=== PATIENT | male | born 1935 | race Caucasian/White ===

== ENCOUNTER 2017-08-21 05:54 | Day surgery (SDC) | payer MEDICARE ==
[~2017-08-21] VITALS: Ht 170.2 cm; Wt 101.4 kg
[2017-08-21] VITALS (8 sets, daily range): BP systolic 123–147; BP diastolic 62–85; PULSE 46–73; RESP 16–18; TEMP 89.4–98.6; O2SAT 93–98
[~2017-08-21 05:54] MED LIST: COUM3TAB PO; COUM5TAB PO; HYDR-3533 PO; LOVA40TA PO; METO50TA PO; VERA360C PO
[2017-08-21] MEDS ORDERED: IOHEXOL 350 MG/ML 50 ML BTL (for Cath Lab) OTHER ONE (05:55)
[2017-08-21] MEDS ORDERED: IOHEXOL 350 MG/ML 100 ML BTL (for Cath Lab) OTHER ONE (05:55)
[2017-08-21] MEDS: NS 1000P @30 MLS/HR (KVO) IV SCH (06:15)
--- NOTE | 2017-08-21 06:51 | RADRPT ---
EXAM DATE/TIME: 08/21/2017 06:21 [place] COMPARISON: No previous studies available for comparison. INDICATIONS : Evaluate for pneumonia,pneumothorax or communicable disease. Preop chest for pre TAVR today MEDICAL HISTORY : Cardiovascular disease. SURGICAL HISTORY : unknown ENCOUNTER: Initial ACUITY: 1 day PAIN SCORE: 0/10 LOCATION: Bilateral chest FINDINGS: Portable AP view of the chest demonstrates mildly enlarged cardiac silhouette with calcification of t he aorta. No effusion, consolidation, or pneumothorax is identified. The bones and soft tissues demon strate no acute finding. There are degenerative changes of the thoracic spine. CONCLUSION: Cardiac silhouette size is mildly enlarged. Otherwise, no acute finding is identified. Ruslan Smith MD on August 21, 2017 at 6:48 Board Certified Radiologist. This report was verified electronically.
[2017-08-21 07:18] LABS: AUTOMATED NEUTROPHIL # 4.3 TH/MM3 (1.8-7.7); BASOPHIL # 0.1 TH/MM3 (0-0.2); BASOPHIL % 0.8 % (0.0-2.0); EOSINOPHIL # 0.1 TH/MM3 (0-0.4); EOSINOPHIL % 1.6 % (0.0-4.0); HEMATOCRIT 39.8 % (39.0-51.0); HEMOGLOBIN 13.7 GM/DL (13.0-17.0); LYMPH % 28.8 % (9.0-44.0); LYMPHOCYTE # 2.1 TH/MM3 (1.0-4.8); MEAN CELL VOLUME 95.4 FL (80.0-100.0); MEAN CORPUSCULAR HEMOGLOBIN 32.9 PG (27.0-34.0); MEAN CORPUSCULAR HGB CONC 34.4 % (32.0-36.0); MEAN PLATELET VOLUME 9.2 FL (7.0-11.0); MONO % 10.2 % (0.0-8.0); MONOCYTE # 0.8 TH/MM3 (0-0.9); NEUT % 58.6 % (16.0-70.0); PLATELET COUNT 158 TH/MM3 (150-450); RED BLOOD COUNT 4.17 MIL/MM3 (4.50-5.90); RED CELL DISTRIBUTION WIDTH 12.5 % (11.6-17.2); WHITE BLOOD COUNT 7.4 TH/MM3 (4.0-11.0)
[2017-08-21 07:21] LABS: BILIRUBIN, URINE NEG (NEG); BLOOD, URINE NEG (NEG); GLUCOSE,URINE NEG (NEG); KETONE, URINE NEG (NEG); MUCUS URINE FEW /lpf (OCC); NITRITE,URINE NEG (NEG); URINE COLOR YELLOW (YELLW/STRAW); URINE LEUKOCYTE ESTERASE NEG (NEG)
[2017-08-21 07:28] LABS: INTERNATIONAL NORMALIZED RATIO 1.3 RATIO; PROTHROMBIN TIME - PATIENT 13.2 SEC (9.8-11.6)
[2017-08-21 07:37] LABS: ALBUMIN 3.6 GM/DL (3.4-5.0); CALCIUM 9.2 MG/DL (8.5-10.1); CREATININE 1.08 MG/DL (0.60-1.30)
[2017-08-21] MEDS ORDERED: GABA100C4 PO (07:55)
[2017-08-21] MEDS ORDERED: TRAM50TA PO (07:55)
[2017-08-21] MEDS ORDERED: FURO40TA PO (07:55)
[2017-08-21] MEDS ORDERED: zyrtec PO (07:55)
[2017-08-21] MEDS ORDERED: SYSTSOL EACH EYE (07:55)
[2017-08-21] MEDS ORDERED: MIDAZOLAM HCL 2 MG/2 ML VIAL ONE (08:17)
[2017-08-21] MEDS ORDERED: HEPARIN-NS/PF FLUSH BAG 2,000 ML IV FLUSH ONE (08:17)
[2017-08-21] MEDS ORDERED: BIVALIRUDIN 250 MG VIAL ONE (08:59)
[2017-08-21] MEDS ORDERED: CLOPIDOGREL 300 MG TAB ONE (09:38)
[2017-08-21] MEDS ORDERED: ATROPINE SULFATE 1 MG/ML VIAL IV PUSH PRN (10:00)
[2017-08-21] MEDS ORDERED: oxyCODONE/ACETAMINOPHEN 5 MG/325 MG TAB PO PRN (10:00)
[2017-08-21] MEDS ORDERED: ACETAMINOPHEN 325 MG TAB PO PRN (10:00)
[2017-08-21] MEDS ORDERED: MORPHINE SULFATE 4 MG/ML INJ IV PUSH PRN (10:00)
[2017-08-21] MEDS ORDERED: SODIUM CHLOR 0.9% 250 ML INJ 250 ML IV PRN (10:00)
[2017-08-21] MEDS ORDERED: MISC INFORMATION XX ONE (10:00)
[2017-08-21] MEDS ORDERED: oxyCODONE/ACETAMINOPHEN 10 MG/325 MG TAB PO PRN (10:00)
[2017-08-21] MEDS ORDERED: METOCLOPRAMIDE HCL 10 MG/2 ML VIAL IV PUSH PRN (10:00)
[2017-08-21] MEDS ORDERED: traMADol HCL 50 MG TAB PO PRN (10:00)
--- NOTE | 2017-08-21 10:08 | CATHPROC ---
Car[employer] HIS Report Study Information Study Number Admission Scheduled Start Study Start [id number] Aug 21 2017 5:54AM 08/21/2017 Aug 21 2017 8:14AM [place] [facility] Cardiac Catheterization Admit Source Facility Department Other [facility] Physician and Clinical Staff Initial Kentrell Wilson Railway Switchman Mallory Peterson BSN Railway Switchman Zay Marino,SHAUN Other cathlab, cathlab Recorder Jacky Webber RCIS(BS) Scrub Davdi Davey,RT(R) Scrub Jayashree Morgan ,RT(R) Procedures Performed Procedure Location (Site) Vessel Name Coronary Angiograms LCA Left Coronary Coronary Angiograms RCA Right Coronary PTCA DIAG1 Prox Left Coronary Stent LAD Mid Left Coronary Wire insertion Fem Art (right) Femoral Art Equipment Time Strategic Procurement Manager Description Size Mfg Part Number Used/Scraped COPILOT VALVE, BLEEDBACK [id number] 09:00 [employer] Used CONTROL *[id number] ARROW INTERNATIONAL CATHETER, FR.7 BALLOON [id number] 08:18 FR 7 Used INC. WEDGE PRESSURE *[id number] TRANSDUCER, TRUWOMAIRA [id number] 08:18 ELI SOOD * Used W/STOCKCOCK *[id number] 09:29 CARDIVA MEDICAL VASCADE, FR6 CLOSURE SYSTEM FR 6\7 Used *[id number] 09:29 CARDIVA MEDICAL VASCADE, FR6 CLOSURE SYSTEM FR 6\7 Used *[id number] 09:40 CARDIVA MEDICAL VASCADE, FR6 CLOSURE SYSTEM FR 6\7 Used *[id number] *[id number] [phone] *[id number] [phone] *[id number] 08:18 MEDLINE INDUSTRIES PACK, CCL CUSTOM * Used *[id number] 08:18 MEDLINE PACER PEN, SKIN DUAL W/ RULER * Used *[id number] 09:21 MEDTRONIC BALLOON, 2.0 X 10MM EUPHORA 10MM Used *[id number] 08:31 MEDTRONIC JR 4.0 DXTERITY CATHETER FR 5 Used *[id number] 09:13 MEDTRONIC STENT, 2.5 18 INTEGRITY 2.5 18 Used *0925324 [id number] 09:16 AppLovin MEDICAL 30 HOSEA INDEFLATOR Used *2164927 [id number] 08:57 MERIT MEDICAL SHEATH, FR6.5 PRELUDE 11CM FR 6.5 038ACT Used *4768424 [id number] 08:18 [employer]ovin MEDICAL WIRE, 3MMJ .035 180CM 180CM Used *[id number] 08:18 NAMIC MANIFOLD, 4 PORT * Used *[id number] 08:18 NYCOMED OMNIPAQUE, 350 MG, 150ML 150ML [id number] Used [id number] 08:18 SHER MEDICAL BLANKET,WARM AIR CCL * Used *3158612 [id number] 08:18 TERUMO MEDICAL SHEATH, FR5 TERUMO (10CM) FR 5 Used *[id number] [id number] 08:18 TERUMO MEDICAL SHEATH, FR7 TERUMO (10CM) FR 7 Used *8207617 WIRE, RUNTHROUGH NS FLOPPY [id number] 08:58 TERUMO MEDICAL 180CM Used .014 180CM *[id number] WIRE, RUNTHROUGH NS FLOPPY [id number] 09:17 TERUMO MEDICAL 180CM Used .014 180CM *[id number] Equipment Model, Serial, Lot Number and Expiration Data Description Model Number Serial Number Lot Number Expiration Date STENT, 2.5 18 INTEGRITY [id number] 03-02-2019 History: Current Medications Medication Dosage/Unit Route Frequency Last Date/Time Taken Beta Zina Statins (any) Coumadin History: Allergies Allergy Reaction chocolate flavor Sneezing tree nut Sneezing History: Risk Factors Family History of Hypertension Dyslipidemia Previous ND Previous Heart Failure Premature CAD Yes Yes No No No Prior Valve Prior PCI Prior CABG Surgery No No No Cerebrovascular Peripheral Artery Chronic Lung On Dialysis Diabetes Disease Disease Disease No Yes No No No History: Symptoms/Diagnosis Selection Items SOB History: Stress Tests Stress or Imaging Studies Performed No History: Other Disease Selection Items HTN History: Other Current Smoker Method Quit Packs a Day Years Used Pack Years No Cigarettes 30 Years Ago 1 37 37 Labs Hgb (g/dl) Hct (%) WBC (l/cumm) Platelets (thousands) 11.60-17.00 35.00-51.00 4.00-11.00 150.00-450.00 13.7 39.8 7.4 158 Glucose (mg/dl) BUN (mg/dl) Creatinine (mg/dl) BUN:Creatinine (1:x) 74.00-106.00 7.00-18.00 0.50-1.30 10.00-20.00 105 23 1.0 23 Na (meq/l) K (meq/l) 136.00-145.00 3.50-5.10 140 3.7 INR (PTT:PT) 0.90-1.10 1.3 CPK-MB (ng/ML) 0.50-3.60 Not Drawn Medication Medication Total Dose (Bolus/Oral) Medication Total Dosage/Unit 1% XYLOCAINE 20 mL ANGIOMAX BOLUS 15 mL FENTANYL 100 mcg PLAVIX 600 mg VERSED 2 mg Medications (Bolus/Oral) Medication Time Given Dosage/Unit Administered By Reason VERSED 08/21/2017 8:43:05 AM 1 mg Zay Marino 1 mg VERSED given in lab by Zay Marino RN in Left Antecubital via Peripheral IV. Ordered by Kentrell Vallejo. FENTANYL 08/21/2017 8:43:18 AM 50 mcg Zay Marino 50 mcg FENTANYL given in lab by Zay Marino RN in Left Antecubital via Peripheral IV. Ordered by Kentrell Oh. 1% XYLOCAINE 08/21/2017 8:44:01 AM 20 mL Kentrell Oh 20 mL 1% XYLOCAINE given in lab by Kentrell Oh in Right Groin via Subcutaneous. Ordered by Kentrell Oh. VERSED 08/21/2017 9:02:02 AM 1 mg Zay Marino 1 mg VERSED given in lab by Zay Marino RN in Left Antecubital via Peripheral IV. Ordered by Kentrell Vallejo. FENTANYL 08/21/2017 9:02:08 AM 25 mcg Zay Marino 25 mcg FENTANYL given in lab by Zay Marino RN in Left Antecubital via Peripheral IV. Ordered by Kentrell Oh. ANGIOMAX BOLUS 08/21/2017 9:02:35 AM 15 mL Zay Marino 15 mL ANGIOMAX BOLUS given in lab by Zay Marino RN via Peripheral IV. Ordered by Kentrell Oh. PLAVIX 08/21/2017 9:38:33 AM 600 mg Zay Marino 600 mg PLAVIX given in lab by Zay Marino, SHAUN via Oral. Ordered by Kentrell Oh. FENTANYL 08/21/2017 9:40:44 AM 25 mcg Zay Marino 25 mcg FENTANYL given in lab by Zay Marino, SHAUN in Left Antecubital via Peripheral IV. Ordered by Kentrell Oh. Medication (Drip) Medication Time Given Dosage/Unit Concentration/Unit Diluent (ml) Solutio n ANGIOMAX DRIP 08/21/2017 9:04:42 AM 1.75 mg/kg/hr 250 mg 50 NaCl .9 1.75 mg/kg/hr ANGIOMAX DRIP given in lab by Zay Marino RN in Left Antecubital via Peripheral IV. Pump/Drip Flow = 35.46 ml/hr using NaCl .9 with a concentration of 250 mg in 50 ml. Ordered by Kentrell Oh. IV Solutions 08/21/2017 8:14:13 AM 0 mL (IV) 500 NaCl .9 Patient arrived on IV Solutions given by cathlab, cathlab in Left Antecubital via Peripheral IV. Pump /Drip Flow = 20 ml/hr using NaCl .9. Ordered by Kentrell Oh. Initial Case Assessment Cardiovascular HR Rhythm NIBP Chest Pain 69 nsr 132/78 0 Edema Present Skin color Skin None Normal Warm Dry Circulatory - Right Pulses Dorsalis Pedis Femoral 3 3 Scale (0,1,2,3,4,d) Circulatory - Left Pulses Dorsalis Pedis Femoral 3 3 Scale (0,1,2,3,4,d) Neurological State Oriented to time-place- Alert Moves all extremities person Respiration - General Respiration Rate SpO2 (%) (B/min) 15 98 Chronological Log Time Study Chronological Log 8:10:03 Patient arrived via Bed. 8:14:04 Patient Name, D.O.B, / Armband Verified By R.N. 8:14:04 Consent signed by the physician and the patient and verified by the [facility] staff. 8:14:05 Pre-op and post- op instructions given; patient acknowledges understanding of instructions . 8:14:05 Verbal Stimulation=2 Physical Stimulation=2 Airway=2 Respiration=2 TOTAL=8. (0=absent, 1=l imited, 2=present) 8:14:06 Presedation assessment performed by [facility] RN. 8:14:09 Immediate Presedation assesment performed by physician. 8:14:09 Patient has been NPO for More than 6Hrs. 8:14:10 Skin Breakdown- none per patient 8:14:11 Patient Warmer Placed on the Table. 8:14:11 Maria Esther Prominences Protected 8:14:13 A # 20 IV was noted in the Antecubital (left). Grade = 0 Patient arrived on IV Solutions given by cathlab, cathlab in Left Antecubital via Peripheral IV. Pump/Drip Flow = 20 8:14:13 ml/hr using NaCl .9. Ordered by Kentrell Oh. 8:14:14 History and physical on the chart or being dictated. Vitals capture started with the following parameters, Patient=Adult, Interval=5 min, Initial Pre gfvrw=463 mmHg, 8:16:26 Deflation Rate=5 mmHg, Cuff placed on Left Arm 8:17:07 HR=66 bpm, GUJD=486/78 mmhg, SpO2=97.0 %, Resp=16 B/min, Pain=0, Gume=10, Reyes=2 Assessment: Initial Case, HR=69 BPM, Rhythm=nsr, ERCC=097/78 mmhg, Chest Pain=0, Edema=None, Col or=Normal, Skin = Warm, Dry Right Pulses: Louie Ped=3, Femoral=3 8:19:19 Left Pulses: Louie Ped=3, Femoral=3 Neurological: State=Alert, Ox3, DOTSON Respiration: Resp=15 B/min, SpO2=98 % 8:22:06 HR=62 bpm, LAJE=994/76 mmhg, SpO2=98.0 %, Resp=14 B/min, Pain=0, Gume=10, Reyes=2 8:25:13 Bilateral groins prepped with 2% chlorhexidine, and draped after a 3 minute waiting time. 8:27:03 Reference ECG taken 8:27:05 HR=57 bpm, FLSQ=475/69 mmhg, SpO2=98.0 %, Resp=17 B/min, Pain=0, Gume=10, Reyes=2 8:31:41 Pressure channel 1 zeroed. 8:32:08 HR=56 bpm, RGIO=074/64 mmhg, SpO2=99.0 %, Resp=17 B/min, Pain=0, Gume=10, Reyes=2 8:32:26 MD paged 8:34:55 MD responded 8:37:07 HR=59 bpm, LTYY=999/69 mmhg, SpO2=99.0 %, Resp=10 B/min, Pain=0, Gume=10, Reyes=2 8:39:10 MD arrived. 8:39:15 The Physician was on time. 8:42:08 HR=51 bpm, DFJE=326/62 mmhg, SpO2=98.0 %, Resp=10 B/min, Pain=0, Gume=10, Reyes=2 Time Out. Correct patient, correct procedure, correct physician, power injector loaded, or not l oaded with contrast with 8:42:53 surgical team present. Time Out Concurred by MD and individual staff in procedure. Time Out #2 - Consents verified, patient in correct position, all results are labled and display ed, safety precautions 8:42:54 taken. Time Out concurred by MD, individual staff and JIG BOX OPERATOR in procedure. 8:42:57 Case Start 8:43:05 1 mg VERSED given in lab by Zay Marino, SHAUN in Left Antecubital via Peripheral IV. Ordere d by Kentrell Oh. 8:43:18 50 mcg FENTANYL given in lab by Zay Marino, SHAUN in Left Antecubital via Peripheral IV. Or dered by Kentrell Oh. 8:44:01 20 mL 1% XYLOCAINE given in lab by Kentrell Oh in Right Groin via Subcutaneous. Ordered b y Kentrell Oh. 8:46:18 Access site was Right Femoral Artery. 8:46:36 A SHEATH, FR5 TERUMO (10CM) FR 5 was advanced into the Fem Art (right) using the Percutaneou s technique. 8:47:03 HR=49 bpm, SJEQ=712/66 mmhg, SpO2=94.0 %, Resp=17 B/min, Pain=0, Gume=10, Reyes=2 8:47:32 Access site was Right Femoral Vein. 8:47:39 A SHEATH, FR7 TERUMO (10CM) FR 7 was advanced into the Fem Vein (right) using the Percutaneo us technique. 8:47:48 A CATHETER, FR.7 BALLOON WEDGE PRESSURE FR 7 was inserted via Fem Vein (right) Recorded Pressure: RA, HR=53, Condition=Condition 1 8:48:18 (Right Atrium) RA 13 Recorded Pressure: RV, HR=61, Condition=Condition 1 8:48:39 (Right Ventricle) RV 37// Recorded Pressure: MPA, HR=68, Condition=Condition 1 8:49:40 (Main Pulmonary Artery) MPA Recorded Pressure: PCW, HR=54, Condition=Condition 1 8:50:18 (Pulmonary Capillary Wedge) PCW 8:51:05 Saturation: Site=Ao (Aorta) , O2=98.5 %, Hgb=13.7 gm/dl, Condition=Condition 1. Used in calc ulation. 8:51:42 Saturation: Site=PA (Pulmonary Artery) , O2=70.7 %, Hgb=13.7 gm/dl, Condition=Condition 1. U sed in calculation. 8:52:08 HR=65 bpm, YJGX=592/51 mmhg, SpO2=93.0 %, Resp=21 B/min, Pain=0, Gume=10, Reyes=2 8:52:42 [place] Raymundo Catheter Removed A JL 4.0 INFINITI CATHETER FR 5 was advanced over a wire. OMNIPAQUE, 350 MG, 150ML 150ML was use d for 8:54:27 injections. Recorded Pressure: Ao, HR=56, Condition=Condition 1 8:55:12 (Aorta) Ao 105/53/76 8:55:42 The LCA was injected and visualized at various angles. OMNIPAQUE, 350 MG, 150ML 150ML used. 8:57:07 HR=49 bpm, YNYC=446/65 mmhg, SpO2=95.0 %, Resp=19 B/min, Pain=0, Gume=10, Reyes=2 After removing the current catheter a JR 4.0 DXTERITY CATHETER FR 5 was advanced over a WIRE, 3M MJ .035 180CM 8:57:25 180CM. 8:58:57 The RCA was injected and visualized at various angles. OMNIPAQUE, 350 MG, 150ML 150ML used. 9:00:18 Catheter was removed A SHEATH, FR6.5 PRELUDE 11CM FR 6.5 was exchanged in the Fem Art (right). This was necessary in order to 9:00:29 accomodate a larger catheter. 9:02:02 1 mg VERSED given in lab by Zay Marino, SHAUN in Left Antecubital via Peripheral IV. Ordere d by Kentrell Oh. 9:02:06 HR=59 bpm, SNAW=666/68 mmhg, SpO2=96.0 %, Resp=14 B/min, Pain=0, Gume=10, Reyes=2 9:02:08 25 mcg FENTANYL given in lab by Zay Marino, SHAUN in Left Antecubital via Peripheral IV. Or dered by Kentrell Oh. 9:02:35 15 mL ANGIOMAX BOLUS given in lab by Zay Marino, SHAUN via Peripheral IV. Ordered by Kentrell Oh. A XBLAD 3.5 GUIDE CATHETER FR 6 was advanced over a wire. OMNIPAQUE, 350 MG, 150ML 150ML was use d for 9:03:17 injections. 1.75 mg/kg/hr ANGIOMAX DRIP given in lab by Zay Marino, SHAUN in Left Antecubital via Periphera l IV. Pump/Drip Flow 9:04:42 = 35.46 ml/hr using NaCl .9 with a concentration of 250 mg in 50 ml. Ordered by Kentrell Oh. After removing the current catheter a XBLAD 4.0 GUIDE CATHETER FR 6 was advanced over a WIRE, 3M MJ .035 180CM 9:06:47 180CM. 9:07:13 HR=50 bpm, NIBP=92/51 mmhg, SpO2=96.0 %, Resp=10 B/min, Pain=0, Gume=10, Reyes=2 9:09:49 A WIRE, RUNTHROUGH NS FLOPPY .014 180CM 180CM was inserted via Fem Art (right). 9:11:22 Interventional wire has crossed the lesion 9:12:04 HR=51 bpm, NIBP=95/62 mmhg, SpO2=96 %, Resp=15 B/min, Pain=0, Gume=10, Reyes=2 An STENT, 2.5 18 INTEGRITY 2.5 18 Bare Metal Stent was inserted through a XBLAD 4.0 GUIDE CATHET ER FR 6 over 9:14:53 a WIRE, RUNTHROUGH NS FLOPPY .014 180CM 180CM. A STENT, 2.5 18 INTEGRITY 2.5 18 was deployed using a 30 HOSEA INDEFLATOR at 14 atmospheres for 10 seconds in 9:15:31 the LAD Mid. 9:16:21 Delivery device removed 9:17:03 HR=50 bpm, GEER=828/62 mmhg, SpO2=97.0 %, Resp=17 B/min, Pain=0, Gume=10, Reyes=2 9:17:40 A WIRE, RUNTHROUGH NS FLOPPY .014 180CM 180CM was inserted via Fem Art (right). 9:19:35 Interventional wire has crossed the lesion A BALLOON, 2.0 X 10MM EUPHORA 10MM was inserted over WIRE, RUNTHROUGH NS FLOPPY .014 180CM 180CM via 9:20:51 the Fem Art (right). 9:22:08 HR=48 bpm, NIBP=99/55 mmhg, SpO2=96.0 %, Resp=15 B/min, Pain=0, Gume=10, Reyes=2 A BALLOON, 2.0 X 10MM EUPHORA 10MM over a WIRE, RUNTHROUGH NS FLOPPY .014 180CM 180CM in the KEELEY G1 9:22:35 Prox was inflated using a 30 HOSEA INDEFLATOR at 6 hosea for 30 sec. 9:23:21 Balloon Removed. 9:25:00 Both wires removed 9:25:32 Catheter was removed 9:27:07 HR=47 bpm, NIBP=95/55 mmhg, SpO2=95.0 %, Resp=19 B/min, Pain=0, Gume=10, Ryees=2 9:29:43 An injection in the Fem Art (right) was made through the SHEATH, FR6.5 PRELUDE 11CM FR 6.5. 9:32:06 HR=44 bpm, NIBP=98/54 mmhg, SpO2=98.0 %, Resp=21 B/min, Pain=0, Gume=10, Reyes=2 9:33:42 VASCADE, FR6 CLOSURE SYSTEM FR 6\7 placement in the Fem Art (right) 9:37:05 HR=50 bpm, CWMC=417/65 mmhg, SpO2=98.0 %, Resp=14 B/min, Pain=0, Gume=10, Reyes=2 9:38:33 600 mg PLAVIX given in lab by Zay Marino, RN via Oral. Ordered by Kentrell Oh. 9:40:10 VASCADE, FR6 CLOSURE SYSTEM FR 6\7 placement in the Fem Vein (right) 9:40:23 Case End 9:40:44 25 mcg FENTANYL given in lab by Zay Marino, RN in Left Antecubital via Peripheral IV. Ordered by Kentrell Oh. 9:42:06 HR=49 bpm, FKGM=805/64 mmhg, SpO2=98.0 %, Resp=17 B/min, Pain=0, Gume=10, Reyes=2 9:46:50 Sterile dressing applied to site 9:46:51 No case complications noted. 9:46:53 Cine recording checked. 9:46:55 Bedside Report will be given. 9:46:56 Implantable Device card placed in patient's chart. 9:46:58 DOCU called. Spoke to Bel 9:47:07 HR=49 bpm, VDUP=603/63 mmhg, SpO2=97.0 %, Resp=17 B/min, Pain=0, Gume=10, Reyes=2 9:48:10 Contrast Scanned 9:48:13 A Left and Right Heart Cath was performed. 9:52:06 HR=46 bpm, NIBP=82/57 mmhg, SpO2=96 %, Resp=17 B/min 9:55:16 Patient moved to [facility] End Study - Contrast Media Used In Study Contrast Total Opened (mL) Total Used (mL) Total Wasted (mL) Omnipaque 110 110 0 End Study - Maximum Contrast Load Max Contrast Load (mL) 506.6 End Study - Radiation Exposure Fluoro Time (minutes) 9.7 End Study - Patient Disposition Complications Transferred To Interventional Outcome No Telemetry Bed successful
[2017-08-21] MEDS: SODIUM CHLORID 0.9% 500 ML INJ 500 ML IV SCH ×2 (10:30→10:56)
--- NOTE | 2017-08-21 10:33 | MA ---
cc: KENTRELL FAJARDO DATE 08/21/2017 INDICATION Severe aortic stenosis. PROCEDURE PERFORMED 1. Fluoroscopy with interpretation. 2. Right heart catheterization. 3. Coronary angiography. 4. Percutaneous intervention bare metal stent to the mid-left anterior descending coronary artery and balloon angioplasty of the first diagonal branch. METHOD The risks, benefits and alternatives were discussed with the patient. The patient understood and consented to the procedure. PROCEDURE The patient was brought into the catheterization lab and placed on the catheterization table. The right groin was prepped and draped in the usual sterile fashion. The right groin was anesthetized with 2% lidocaine. The right common femoral artery was cannulated and a 5-Iranian, 11-cm sheath was placed without difficulty. The right femoral vein was accessed and a 7-Iranian sheath was placed without difficulty. RIGHT HEART CATHETERIZATION A 7-Iranian Silt-Raymundo pulmonary arterial catheter was advanced through the right femoral via an 8 sheath to the level of the right atrium under fluoroscopic guidance. Hemodynamics were as follows - 1. Right atrial pressure measured 13 mmHg. 2. Right ventricular pressure measured 37.5 mmHg. 3. Pulmonary arterial pressure measured 40/17 mmHg. 4. Pulmonary capillary wedge pressures 18 mmHg. 5. Cardiac output is 5.1 liters/minute. 6. Cardiac index 2.4 liters/minute/meter2. CORONARY ANGIOGRAPHY 1. Left main coronary artery is angiographically normal. 2. Left anterior descending coronary artery proximally has some mild luminal irregularities. There is 75% stenosis just beyond the bifurcation with moderate-sized first diagonal branch. The remainder of the left anterior descending coronary artery has mild luminal irregularities. 3. The Left circumflex gives rise to an obtuse marginal branch. It has minor luminal irregularities. 4. The right coronary artery is a dominant vessel giving rise to a posterior descending branch. The right coronary artery has mild luminal irregularities. PERCUTANEOUS INTERVENTION The left main coronary was selectively engaged with a 6-Iranian XB-LAD 4.0 guide catheter. A 0.014-inch, 180-cm Mass Relevance Run-Through wire was navigated down to the distal left anterior descending coronary artery. A 2.5 x 18-mm RX bare metal stent was deployed in the mid-segment of the left anterior descending coronary artery. There was some plaque shifting into the ostia of the diagonal branch. A second wire was then carefully navigated down to the distal diagonal branch. A 2.0 x 10-mm RX balloon was then gently deployed at the proximal segment of the diagonal branch. Repeat angiography showed no residual stenosis, ALEC-3 flow. Both wires were removed. Both sheaths were closed with closure device, Vascade with good hemostasis. CONCLUSIONS 1. Severe mid-left anterior descending coronary stenosis. 2. Severe aortic stenosis. 3. Normal left and right-sided filling pressures, cardiac output and index, and mild pulmonary hypertension. 4. Successful percutaneous intervention with bare-metal stent to the mid-left anterior descending coronary artery. PLAN 1. Monitor the patient closely for any post-procedural complications. 2. We will have further evaluation for transcatheter aortic valve replacement. 3. We will initiate statin therapy in addition to Plavix. 4. We will hold diltiazem given the bradycardia. Kentrell Fajardo MD SM/SSB /9:56 AM /10:12 AM
--- NOTE | 2017-08-21 10:52 | PD.FRAIL ---
Date: Aug 21, 2017 Height: 170.18 cm Weight: 101.3 kg BMI: 35.0 Assessment Performed: Outpatient Albumin 08/21/17 06:47: Blood Urea Nitrogen 23, Creatinine 1.08, Random Glucose 105, Albumin 3.6, Calcium Level 9.2, Sodium Level 140, Potassium Level 3.7, Chloride Level 105, Carbon Dioxide Level 28.0 Pass/Fail: Pass Shahid Activities Daily Living Shahid ADL Score: Bathing(bathes self/help in single area): Snowflake (1), Dressing(gets/puts clothes on self): Snowflake (1), Toileting(goes without help): Snowflake ( 1), [facility] Snowflake (1), Continence( complete self-control): Snowflake (1), Feeding(self, prep by another allowed) : Snowflake (1), Total: 6 Legal Arbitrator Strength Grasp 1: 28 Grasp 2: 22 Grasp 3: 26 Average: 25.3 Pass/Fail: Fail 15-Foot Walk 15-Foot Walk (seconds): 8.5 Pass/Fail: Fail Total Frailty Total Frailty (out of 4): 2 Frailty Index Score Reference Legal Arbitrator Strength: BMI: <=24 Cutoff for nurses' registry director strength(Kg): <=29 BMI: 24.1-28 Cutoff for nurses' registry director strength(Kg): <=30 BMI: >28 Cutoff for nurses' registry director strength(Kg): <=32 15-Foot Walk: Height: <=173 cm 15-Foot Walk Cutoff Time: >=7 seconds Height: >173 cm 15-Foot Walk Cutoff Time: >=6 seconds Lise Orozco RN Aug 21, 2017 10:52
--- NOTE | 2017-08-21 13:31 | PD.CAR.PN ---
CVT Progress Note Subjective/Hospital Course: Pt examined and chart reviewed. Full consult dictated: Risk Model and Variables - STS Adult Cardiac Surgery Database Version 2.81 RISK SCORES About the STS Risk Calculator Procedure: AV Replacement Risk of Mortality: 3.154% Morbidity or Mortality: 19.915% Long Length of Stay: 9.382% Short Length of Stay: 28.759% Permanent Stroke: 1.419% Prolonged Ventilation: 11.919% DSW Infection: 0.357% Renal Failure: 6.697% Reoperation: 8.192% Objective: Vital Signs Date Time Temp Pulse Resp B/P (MAP) Pulse Ox O2 Delivery O2 Flow Rate FiO2 08/21/17 10:31 94 Room Air 08/21/17 07:28 98.3 72 16 147/85 (105) 98 Labs: Laboratory Tests Test 08/21/17 06:22 08/21/17 06:41 08/21/17 06:47 Urine Color YELLOW (YELLW/STRAW) Urine Turbidity CLEAR (CLEAR) Urine pH 6.0 (5.0-8.5) Urine Specific [place] 1.018 (1.002-1.035) Urine Protein NEG mg/dL (NEG-TRACE) Urine Glucose (UA) NEG mg/dL (NEG) Urine Ketones NEG mg/dL (NEG) Urine Occult Blood NEG (NEG) Urine Nitrite NEG (NEG) Urine Bilirubin NEG (NEG) Urine Urobilinogen 2.0 MG/DL (LESS THAN Urine Leukocyte Esterase NEG (NEG) Urine RBC 2 /hpf (0-3) Urine WBC 2 /hpf (0-5) Urine Mucus FEW /lpf (OCC) Microscopic Urinalysis Comment CULT NOT INDICATED Nasal Screen MRSA (PCR) MRSA NOT DETECTED (NOT White Blood Count 7.4 TH/MM3 (4.0-11.0) Red Blood Count 4.17 MIL/MM3 (4.50-5.90) Hemoglobin 13.7 GM/DL (13.0-17.0) Hematocrit 39.8 % (39.0-51.0) Mean Corpuscular Volume 95.4 FL (80.0-100.0) Mean Corpuscular Hemoglobin 32.9 PG (27.0-34.0) Mean Corpuscular Hemoglobin Concent 34.4 % (32.0-36.0) Red Cell Distribution Width 12.5 % (11.6-17.2) Platelet Count 158 TH/MM3 (150-450) Mean Platelet Volume 9.2 FL (7.0-11.0) Neutrophils (%) (Auto) 58.6 % (16.0-70.0) Lymphocytes (%) (Auto) 28.8 % (9.0-44.0) Monocytes (%) (Auto) 10.2 % (0.0-8.0) Eosinophils (%) (Auto) 1.6 % (0.0-4.0) Basophils (%) (Auto) 0.8 % (0.0-2.0) Neutrophils # (Auto) 4.3 TH/MM3 (1.8-7.7) Lymphocytes # (Auto) 2.1 TH/MM3 (1.0-4.8) Monocytes # (Auto) 0.8 TH/MM3 (0-0.9) Eosinophils # (Auto) 0.1 TH/MM3 (0-0.4) Basophils # (Auto) 0.1 TH/MM3 (0-0.2) CBC Comment DIFF FINAL Differential Comment Prothrombin Time 13.2 SEC (9.8-11.6) Prothromb Time International Ratio 1.3 RATIO Activated Partial Thromboplast Time 27.7 SEC (24.3-30.1) Blood Urea Nitrogen 23 MG/DL (7-18) Creatinine 1.08 MG/DL (0.60-1.30) Random Glucose 105 MG/DL (74-106) Albumin 3.6 GM/DL (3.4-5.0) Calcium Level 9.2 MG/DL (8.5-10.1) Sodium Level 140 MEQ/L (136-145) Potassium Level 3.7 MEQ/L (3.5-5.1) Chloride Level 105 MEQ/L (98-107) Carbon Dioxide Level 28.0 MEQ/L (21.0-32.0) Anion Gap 7 MEQ/L (5-15) Estimat Glomerular Filtration Rate 66 ML/MIN (>89) Result Diagram: 08/21/17 0647 08/21/17 0647 Kavitha Emery MD Aug 21, 2017 13:31
--- NOTE | 2017-08-21 14:03 | MB ---
cc: KENTRELL OH ROHIT K. M.D. DATE OF CONSULTATION 08/21/[address] Kentrell Oh. REASON FOR CONSULTATION Evaluation for aortic valve replacement. HISTORY OF PRESENT ILLNESS Mr. Couch is a very pleasant 81-year-old gentleman with a known history of aortic stenosis, who presents with progressively worsening symptoms of shortness of breath and fatigue with minimal exertion. The patient has been evaluated with an echocardiogram which has revealed relative preserved ventricular function with ejection fraction of 55% and associated severe aortic stenosis with a calculated valve area of 0.6 cm square, mean gradient of 43.6, peak rate of 85. I am now being consulted for a further opinion regarding surgical therapy versus TAVR repair. He did undergo coronary angiography today which revealed single-vessel coronary artery disease involving the LAD for which he underwent PCI with a bare metal stent. At this present time he is hemodynamically stable with no evidence of decompensation. PAST MEDICAL HISTORY 1. Atrial fibrillation. 2. Aortic stenosis as described above. 3. Hypertension. 4. Hyperlipidemia. 5. Chronic kidney disease. 6. Diet-controlled diabetes mellitus. 7. Degenerative joint disease. 8. Cervical spine stenosis with spondylolysis. 9. Neuropathy. 10.Osteoarthritis. 11.Pulmonary hypertension. 12.TIA. PAST SURGICAL HISTORY 1. Left cataract. 2. Colonoscopy. 3. Cervical spine epidural injection and nerve blocks. 4. Prostatectomy. ALLERGIES The patient reports allergies to: 1. CHOCOLATE FLAVOR. 2. TREE NUTS. MEDICATIONS Home medications include: 1. Warfarin. 2. Lovastatin. 3. Metoprolol. 4. Tramadol. 5. Gabapentin. 6. Furosemide. 7. Polyethylene glycol eye drops. 8. Zyrtec. SOCIAL HISTORY He denies any history of extensive alcohol use or illicit drug use. He is a former smoker, however, does not presently smoke. FAMILY HISTORY Noncontributory. REVIEW OF SYSTEMS As above. All other parameters are negative. PHYSICAL EXAMINATION VITAL SIGNS: On physical examination today he is 170 cm tall, weighs 101 kg. Blood pressure is 147/85 with a heart rate of 72 72 which is irregular, respiratory rate 16. He is afebrile. HEENT: Normocephalic, atraumatic. Pupils are round and reactive. Extraocular muscles intact. NECK: No cervical lymphadenopathy, carotid bruits or JVD. CARDIOVASCULAR: Irregularly irregular with normal S1, S2, without gallops or rubs. There is a 4/6 systolic ejection murmur best heard at the right parasternal border. LUNGS: Basilar crackles, otherwise clear to auscultation bilaterally with good exchange. ABDOMEN: Soft, nontender, nondistended. Normoactive bowel sounds. No hepatosplenomegaly. EXTREMITIES: Bilateral lower extremity pulses are intact without cyanosis, clubbing or edema. No venous varicosities. NEUROLOGIC: Neurologically intact with no focal deficits. IMPRESSION 1. Severe symptomatic aortic stenosis. 2. Congestive heart failure. 3. Hypertension. 4. Hyperlipidemia. 5. Atrial fibrillation. 6. Chronic kidney disease. 7. Cervical spine stenosis. 8. Degenerative joint disease. 9. Neuropathy. 10.Pulmonary hypertension. 11.TIA. PLAN The clinical, echo and angiographic findings were discussed in detail with Mr. Couch. Therapeutic options available including surgical aortic valve replacement versus transcatheter aortic valve replacement (TAVR) therapy was detailed. Given his significant medical co-morbidities, advanced age, as well as his obesity I think he will best be served with the TAVR option. In that regard he will need a CTA of the aorta with runoff as well as PFTs to complete the work-up. He will also need a second opinion with Dr. Weber to concur with the proposed plan. Thank you for allowing me to participate in the care of this patient. Kavitha AMADO /1:34 PM /1:43 PM GISELE
[2017-08-21] MEDS ORDERED: ONDANSETRON HCL 4 MG/2 ML VIAL IV PUSH PRN (15:00)
[2017-08-21] MEDS ORDERED: EPINEPHrine HCL (1:10,000) 1 MG/10 ML SYRINGE ONE (20:38)
[2017-08-21] MEDS ORDERED: GABAPENTIN 100 MG CAP PO SCH (21:00)
[2017-08-21] MEDS ORDERED: ATORVASTATIN 10 MG TAB PO SCH (21:00)
[2017-08-21] MEDS ORDERED: METOPROLOL TARTRATE 50 MG TAB PO SCH (21:00)
[2017-08-21] MEDS ORDERED: IOHEXOL 350 MG/ML 10 ML VIAL (for RAD DIAG) IVCONTRAST ONE (21:26)
--- NOTE | 2017-08-21 21:51 | EKG ---
Date Performed: 08/21/2017 Time Performed: 11:53:32 PTAGE: 81 years EKG: Probable junctional rhythm. Inferior and anterior T wave changes are nonspecific Abnormal E CG PREVIOUS TRACING : 05/13/2007 05.40 DOCTOR: Jeovany Ohara Interpretating Date/Time 08/21/2017 21:49:57
--- NOTE | 2017-08-21 22:36 | RADRPT ---
EXAM DATE/TIME: 08/21/2017 21:16 [facility] COMPARISON: No previous studies available for comparison. INDICATIONS : Preoperative TAVR. IV CONTRAST: 100 cc Omnipaque 350 (iohexol) IV RADIATION DOSE: 45.16 CTDIvol (mGy) MEDICAL HISTORY : Cardiovascular disease. SURGICAL HISTORY : None. ENCOUNTER: Initial ACUITY: 1 day PAIN SCALE: 0/10 LOCATION: chest TECHNIQUE: Volumetric scanning was performed using a multi-row detector CT scanner. The data was post processed with a variety of visualization algorithms including full volume maximum intensity projection, multi -planar sliding thin slab reformation, curved planar reformation, and surface rendering techniques. Using automated exposure control and adjustment of the mA and/or kV according to patient size, radiat ion dose was kept as low as reasonably achievable to obtain optimal diagnostic quality images. DIC OM format image data is available electronically for review and comparison. FINDINGS: CARDIAC: The coronary system is right dominant. There are calcifications in all 3 of the coronary vessels. Th ere is no pericardial effusion AORTIC ROOT/VALVE: Aortic cusps are evident with calcifications. The aortic root measures 4.0 x 3.6 cm.. Mid thoracic aorta measures 2.9 cm with calcifications along the wall of the aorta. THORACIC AORTA: Origin of the great vessels is normal. No evidence of aneurysm, mural thrombus, dissection, or steno sis. There are calcifications along the wall of the arch of the aorta. ABDOMINAL AORTA: No evidence of aneurysm, mural thrombus, dissection or stenosis. There is atherosclerotic plaquing th roughout the wall of the abdominal aorta. CELIAC ARTERY: Celiac artery is widely patent. SMA: This may is patent with some calcified plaques at the origin. RIGHT RENAL ARTERY: Right renal artery is patent. LEFT RENAL ARTERY: Left renal artery is patent. RIGHT COMMON ILIAC: No evidence of aneurysm, mural thrombus, dissection or stenosis. There is atherosclerotic calcified p laques along the wall of the vessel. The common femoral measures 1.3 cm. LEFT COMMON ILIAC: No evidence of aneurysm, mural thrombus, dissection or stenosis. There are calcified plaques along th e wall of the common iliac artery The common femoral measures 1.4 cm. THORAX: There is some interstitial changes in both lung adame. No acute pulmonary infiltrates. No evidence o f mediastinal adenopathy. ABDOMEN: Multiple hepatic cysts are seen throughout the liver. The largest cyst measures approximately 3.7 cm and the left lobe. No dilated biliary ducts. 1.7 cm right renal cyst. 1.5 cm left renal cyst. PELVIS: There is some edema in the right groin area most likely from recent cath. CONCLUSION: 1. There are atherosclerotic changes seen throughout the aorta without significant stenosis.. 2. The aortic root measures approximate 4.0 x 3.6 cm. 3. Nonspecific edema is noted in the right groin area most likely from a recent cath. Prem Dominguez MD on August 21, 2017 at 22:19 Board Certified Radiologist. This report was verified electronically.
[2017-08-21] MEDS ORDERED: PRAVASTATIN SOD 40 MG TAB PO ONE (22:45)
[2017-08-22] VITALS (10 sets, daily range): BP systolic 125–132; BP diastolic 76–85; PULSE 77–98; RESP 16–17; TEMP 98.3; O2SAT 92–94
[2017-08-22 04:21] LABS: AUTOMATED NEUTROPHIL # 5.8 TH/MM3 (1.8-7.7); BASOPHIL # 0.1 TH/MM3 (0-0.2); EOSINOPHIL # 0.1 TH/MM3 (0-0.4); EOSINOPHIL % 1.5 % (0.0-4.0); HEMATOCRIT 36.1 % (39.0-51.0); HEMOGLOBIN 12.3 GM/DL (13.0-17.0); LYMPH % 18.4 % (9.0-44.0); LYMPHOCYTE # 1.5 TH/MM3 (1.0-4.8); MEAN CORPUSCULAR HEMOGLOBIN 32.3 PG (27.0-34.0); MEAN PLATELET VOLUME 9.2 FL (7.0-11.0); MONO % 10.3 % (0.0-8.0); MONOCYTE # 0.9 TH/MM3 (0-0.9); NEUT % 68.8 % (16.0-70.0); PLATELET COUNT 147 TH/MM3 (150-450); RED CELL DISTRIBUTION WIDTH 12.6 % (11.6-17.2); WHITE BLOOD COUNT 8.4 TH/MM3 (4.0-11.0)
[2017-08-22 04:47] LABS: BICARBONATE 28.2 MEQ/L (21.0-32.0); CALCIUM 9.1 MG/DL (8.5-10.1); CREATININE 0.97 MG/DL (0.60-1.30)
[2017-08-22 04:51] LABS: CHOLESTEROL/ HDL RATIO 2.82 RATIO; HDL CHOLESTEROL 42.8 MG/DL (40.0-60.0)
[2017-08-22] MEDS: NS 1000P @30 MLS/HR (KVO) IV SCH (06:15)
[2017-08-22] MEDS ORDERED: PRAVASTATIN SOD 40 MG TAB PO SCH ×2 (09:00→21:00)
[2017-08-22] MEDS ORDERED: CLOPIDOGREL 75 MG TAB PO SCH (09:00)
[2017-08-22] MEDS ORDERED: ASPIRIN 81 MG CHEW TAB PO SCH (09:00)
[2017-08-22] MEDS ORDERED: CETIRIZINE HCL 10 MG TAB PO SCH (09:00)
[2017-08-22] MEDS ORDERED: FUROSEMIDE 40 MG TAB PO SCH (09:00)
--- NOTE | 2017-08-22 09:27 | HHI.DS ---
Discharge Summary Admission Date Discharge Date: Aug 22, 2017 Admitting Diagnosis severe aortic stenosis Procedures coronary angiography with percutaneous intervention of the left anterior descending coronary artery with bare metal stent Brief History patient presented to outpatient office with progressive shortness of breath and TTE showed severe . here for evaluation preoperatively TAVR vs sAVR CBC/BMP: 08/22/17 0358 08/22/17 0358 Significant Findings Laboratory Tests Test 08/21/17 06:22 08/21/17 06:41 08/21/17 06:47 08/22/17 03:58 Urine Mucus FEW /lpf (OCC) Red Blood Count 4.17 MIL/MM3 (4.50-5.90) 3.80 MIL/MM3 (4.50-5.90) Monocytes (%) (Auto) 10.2 % (0.0-8.0) 10.3 % (0.0-8.0) Prothrombin Time 13.2 SEC (9.8-11.6) Blood Urea Nitrogen 23 MG/DL (7-18) 21 MG/DL (7-18) Estimat Glomerular Filtration Rate 66 ML/MIN (>89) 74 ML/MIN (>89) Hemoglobin 12.3 GM/DL (13.0-17.0) Hematocrit 36.1 % (39.0-51.0) Platelet Count 147 TH/MM3 (150-450) Random Glucose 107 MG/DL (74-106) Imaging Last Impressions Chest X-Ray 08/21/17 0000 Signed Impressions: Service Date/Time: Monday, August 21, 2017 06:21 - CONCLUSION: Cardiac silhouette size is mildly enlarged. Otherwise, no acute finding is identified. Ruslan Smith MD Chest CTA 08/21/17 0000 Signed Impressions: Service Date/Time: Monday, August 21, 2017 21:16 - CONCLUSION: 1. There are atherosclerotic changes seen throughout the aorta without significant stenosis.. 2. The aortic root measures approximate 4.0 x 3.6 cm. 3. Nonspecific edema is noted in the right groin area most likely from a recent cath. Prem Dominguez MD PE at Discharge SKIN: Warm and dry. HEAD: Normocephalic. EYES: No scleral icterus. No injection or drainage. NECK: Supple, trachea midline. No JVD or lymphadenopathy. CARDIOVASCULAR: IR IR +3/6 SM RESPIRATORY: Breath sounds equal bilaterally. No accessory muscle use. GASTROINTESTINAL: Abdomen soft, non-tender, nondistended. MUSCULOSKELETAL: No cyanosis, or edema. BACK: Nontender without obvious deformity. No CVA tenderness. Hospital Course Patient post PCI LAD BMS CTA done of chest as preTAVR workup evaluated by Dr. Emery and Emery for AVR vs TAVR bradycardiac on telemetry but asymptomatic. CCB and BB held. HR up to 100 bpm groin intact. DC planning' will coordinate for TAVR Pt Condition on Discharge: Good Discharge Disposition: Discharge Home Discharge Instructions DIET: Follow Instructions for: Heart Healthy Diet Activities you can perform: Weight Bearing as Tiffanie Activities to Avoid: Driving for 24 hrs Kentrell Oh MD Aug 22, 2017 09:27
[2017-08-22] MEDS ORDERED: METO25TA3 PO (09:28)
[2017-08-22] MEDS ORDERED: PLAV75TA29 PO (09:31)
[2017-08-22] MEDS ORDERED: ASPI81 PO (09:31)
[2017-08-22] MEDS ORDERED: CETI-1 PO (10:46)
--- NOTE | 2017-08-22 14:28 | EKG ---
Date Performed: 08/22/2017 Time Performed: 05:55:46 PTAGE: 81 years EKG: Atrial fibrillation Possible anterior infarct - age undetermined Low QRS voltages in precor dial leads Compared to previous tracing the patient is now in atrial fibrillation Abnormal ECG PREVIOUS TRACING : 08/21/2017 11.53 DOCTOR: Elise Ag Interpretating Date/Time 08/22/2017 14:27:58
--- NOTE | 2017-08-24 10:11 | RSPPFT ---
DATE OF PROCEDURE: 08/21/17 COMMENTS: The forced vital capacity shows a marked reduction. The FEV1 and FEF 25-75 are both markedly reduced. The FEV1/FVC ratio is normal. IMPRESSION: This is compatible with severe restrictive lung disease with a large and small airways obstruction.
== END 2017-08-22 10:50 | disposition home or self-care (01) ==
LOC: HDOC 05:54 → HDIC 05:55 → HCPC 15:31 → HDOC 08-22 10:50
PROVIDERS: ATTEND Internal Medicine
DX: I25.10 Atherosclerotic heart disease of native coronary artery without angina pectoris (principal); I35.0 Nonrheumatic aortic (valve) stenosis; I27.20 Pulmonary hypertension, unspecified; R06.02 Shortness of breath; I48.91 Unspecified atrial fibrillation; I50.9 Heart failure, unspecified; N18.9 Chronic kidney disease, unspecified; I13.0 Hypertensive heart and chronic kidney disease with heart failure and stage 1 through stage 4 chronic kidney disease, or unspecified chronic kidney disease; E78.5 Hyperlipidemia, unspecified; E11.22 Type 2 diabetes mellitus with diabetic chronic kidney disease; M19.90 Unspecified osteoarthritis, unspecified site; M48.02 Spinal stenosis, cervical region; G62.9 Polyneuropathy, unspecified; Z86.73 Personal history of transient ischemic attack (TIA), and cerebral infarction without residual deficits; Z79.01 Long term (current) use of anticoagulants; Z87.891 Personal history of nicotine dependence
CPT/HCPCS: 71045; 74174; 80048; 80061; 81001; 82040; 82550; 82810; 85025; 85610; 85730; 86850; 86900; 86901; 87641; 92928; 93005; 93456; 94010; 99152; 99153; C1725; C1760; C1769; C1876; C1887; C1893; G0269; J0583; J1644; J2250; J3010; J7040; Q9967; J0171

== ENCOUNTER → 2017-09-18 | Outpatient (CLI) | payer MEDICARE ==
[~2017-09-18] MED LIST changes: +ASPI81 PO; +CETI-1 PO; +FURO40TA PO; +GABA100C4 PO; -HYDR-3533 PO; +METO25TA3 PO; -METO50TA PO; +PLAV75TA29 PO; +SYSTSOL EACH EYE; +TRAM50TA PO; -VERA360C PO
[2017-09-18 09:43] LABS: BASOPHIL # 0.1 TH/MM3 (0-0.2); BASOPHIL % 1.3 % (0.0-2.0); EOSINOPHIL # 0.1 TH/MM3 (0-0.4); EOSINOPHIL % 2.6 % (0.0-4.0); HEMATOCRIT 38.3 % (39.0-51.0); LYMPH % 25.5 % (9.0-44.0); LYMPHOCYTE # 1.3 TH/MM3 (1.0-4.8); MEAN CELL VOLUME 95.7 FL (80.0-100.0); MEAN CORPUSCULAR HEMOGLOBIN 32.5 PG (27.0-34.0); MEAN PLATELET VOLUME 8.8 FL (7.0-11.0); MONO % 10.9 % (0.0-8.0); MONOCYTE # 0.5 TH/MM3 (0-0.9); NEUT % 59.7 % (16.0-70.0); PLATELET COUNT 169 TH/MM3 (150-450); RED CELL DISTRIBUTION WIDTH 13.1 % (11.6-17.2)
[2017-09-18 09:48] LABS: INTERNATIONAL NORMALIZED RATIO 1.6 RATIO; PROTHROMBIN TIME - PATIENT 15.7 SEC (9.8-11.6)
[2017-09-18 10:21] LABS: BICARBONATE 29.8 MEQ/L (21.0-32.0); CALCIUM 9.2 MG/DL (8.5-10.1); CREATININE 1.05 MG/DL (0.60-1.30)
== END ==
LOC: CLAB 09:12
PROVIDERS: ATTEND Internal Medicine
DX: Z01.810 Encounter for preprocedural cardiovascular examination (principal); I35.0 Nonrheumatic aortic (valve) stenosis
CPT/HCPCS: 36415; 80048; 85025; 85610; 86850; 86900; 86901

== ENCOUNTER 2017-09-20 08:02 | Inpatient (IN) | payer MEDICARE ==
[2017-09-20] VITALS (8 sets, daily range): BP systolic 82–149; BP diastolic 41–87; PULSE 59–112; RESP 16–20; TEMP 97.6–98.7; O2SAT 93–99
[~2017-09-20] VITALS: Ht 170.2 cm; Wt 103.0 kg
[2017-09-20] MEDS ORDERED: VERA1TAB9 PO (08:49)
[2017-09-20] MEDS ORDERED: ceFAZolin 2 GM PREMIX 50 ML IV PRN (09:00)
[2017-09-20] MEDS ORDERED: ASPIRIN 325 MG TAB PO SCH (09:00)
[2017-09-20] MEDS ORDERED: MUPIROCIN 2% OINT 1 APPLIC/GM SYRINGE EACH NARE PRN (09:00)
[2017-09-20] MEDS ORDERED: POVIDONE IODINE 5% (ANTISEPSIS KIT) EACH NARE PRN (09:00)
[2017-09-20] MEDS: CHLORHEXIDINE GLUCONATE 2 % 1 PACK (2 CLOTHS) TOPICAL PRN ×2 (09:15→10:15)
[2017-09-20 09:37] LABS: INTERNATIONAL NORMALIZED RATIO 1.3 RATIO
[2017-09-20] MEDS ORDERED: PROTAMINE SULFATE 50 MG/5 ML VIAL ONE (10:06)
[2017-09-20] MEDS ORDERED: HEPARIN SODIUM - IV 10,000 UNITS/10 ML VIAL ONE (10:07)
[2017-09-20] MEDS ORDERED: NOREPINEPHRINE 4 MG/4 ML AMP ONE (10:07)
--- NOTE | 2017-09-20 11:08 | MH ---
cc: Kentrell Oh MD DATE OF ADMISSION: 09/20/2017 INDICATIONS: Severe symptomatic aortic stenosis. HISTORY OF PRESENT ILLNESS: An 81-year-old gentleman who follows with myself and Dr. Boss in the outpatient setting, has had history of recent progressive, severe aortic valve stenosis. He underwent diagnostic angiography which revealed mid-left anterior descending coronary stenosis and successful percutaneous intervention. He has had progressive shortness of breath. He was seen in consultation by both Dr. Weber and Dr. Emery and felt to be intermediate surgical risk. He was worked up for transcatheter aortic valve replacement and is here today to proceed with the planned aortic valve replacement. PAST MEDICAL HISTORY: 1. Severe aortic stenosis. 2. Atrial fibrillation. 3. Arthritis. 4. History of cerebral infarction. 5. Diabetes. 6. Chronic kidney disease. 7. Hyperlipidemia.. 8. Hypertension. MEDICATIONS: See med reconciliation. ALLERGIES: NO KNOWN DRUG ALLERGIES. FAMILY HISTORY: Denies family history of early cardiac disease or sudden cardiac . SOCIAL HISTORY: Former smoker, occasional alcohol use. No drug use. PHYSICAL EXAMINATION: VITAL SIGNS: Temperature is 97, pulse 69, blood pressure 140/87 mmHg. GENERAL: Alert and oriented x 3, in no acute distress. HEENT: Exam shows the pupils reactive to light and accommodation. Extraocular movements are intact. NECK: No elevation of jugular venous distention. No thyromegaly, no lymphadenopathy, no carotid bruits. LUNGS: Clear to auscultation bilaterally. CARDIOVASCULAR EXAM: A 3/6 crescendo decrescendo murmur. ABDOMEN: Nontender, nondistended. Good bowel sounds. No hepatosplenomegaly. EXTREMITIES: No clubbing, cyanosis or edema. Good peripheral pulses. NEUROLOGIC: Cranial nerves intact. Motor and sensory grossly intact. LABORATORY DATA: Hemoglobin is 13, platelet count is 169. BUN is 22, creatinine is 1.05. PREOPERATIVE WORKUP: The patient has a 3.3% STS score with a [place] [employer] Class III. Body mass index of 35.0. He is a frailty of 2:4. Electrocardiogram shows atrial fibrillation. He has moderate to severe restricted lung disease. FEV1 1.2. Echocardiogram has a mean gradient of 43 mmHg, calculated aortic valve area of 0.6 cm2, peak velocity of 4.6 m/second, ejection fraction 55%. There is mild mitral and tricuspid regurgitation, no aortic insufficiency. He had a 5% stenosis in the midsegment of the LAD which underwent bare metal stent. The remainder of the vessels have mild luminal irregularities. A CT of the chest analysis: Short annulus, diameter 23.3 mm, long annulus diameter 28.9 mm, annular area 541.9 mm. Sinus of Valsalva diameter is 36.2 mm, the sinotubular junction 30.5 mm, left coronary height is 16.6 mm, right coronary height 22.2 mm. Minimal luminal diameter in the right iliac system of 9.2 mm and on the left is 8.4 mm. ASSESSMENT: 1. Severe aortic valve stenosis. 2. History of coronary artery disease. 3. Diabetes. 4. Atrial fibrillation. 5. Hyperlipidemia.. 6. Chronic kidney disease. PLAN: We will obtain access through the right common femoral artery. The risks, benefits and alternatives were discussed with the patient regarding transcatheter aortic valve replacement. The patient is agreeable to proceed. We will plan for an Holm S3 29-mm valve deployment. Kentrell Oh MD MARZENA/SB , 10:38 AM , 11:06 AM
[2017-09-20] MEDS ORDERED: ceFAZolin 2 GM PREMIX 50 ML ONE (11:48)
[2017-09-20] MEDS ORDERED: PROPOFOL 200 MG/20 ML AMP IV ONE (12:00)
[2017-09-20] MEDS ORDERED: ePHEDrine/NS 25 MG/5 ML SYRINGE IV ONE (12:00)
[2017-09-20] MEDS ORDERED: PHENYLEPH/NS 1000 MCG/10 ML SYR IV ONE (12:00)
[2017-09-20] MEDS ORDERED: NORMOSOL R INJ 1,000 ML IV ONE (12:00)
[2017-09-20] MEDS ORDERED: GLYCOPYRROLATE 1 MG/5 ML SYRINGE IV PUSH ONE (12:00)
[2017-09-20] MEDS ORDERED: ROCURONIUM INJ 50 MG/5 ML SYRINGE IV PUSH ONE (12:00)
[2017-09-20] MEDS ORDERED: VECURONIUM BROMIDE 20 MG VIAL IV ONE (12:00)
[2017-09-20] MEDS ORDERED: NS 500 ML (EXCEL BAG) INJ 500 ML IV ONE (12:00)
[2017-09-20] MEDS ORDERED: NEOSTIGMINE 5 MG/5 ML SYRINGE IV PUSH ONE (12:00)
[2017-09-20] MEDS ORDERED: IOHEXOL IV ONE (13:00)
--- NOTE | 2017-09-20 13:10 | PD.OP ---
cc: Teresa Weber MD; Kentrell Oh MD Operative Report Date of Surgery: Sep 20, 2017 Preoperative Diagnosis: (1) Aortic stenosis (2) Diastolic heart failure Postoperative Diagnosis: same Procedure: Transcatheter aortic valve replacement with a 29 Faith 3 tissue valve Balloon aortic valvuloplasty with a 25 Holm balloon Percutaneous bilateral femoral artery access with Perclose closure on the right Left femoral venous access Aortography Fluoroscopy Anesthesia: Dr. Fox Surgeon: Teresa Weber Co-surgeon - Dr. Oh Bundle Shaker(s): none Operation and Findings: The risks, benefits, complications, treatment options, and expected outcomes were discussed with the patient. The possibilities of reaction to medication, pulmonary aspiration, perforation of viscus, bleeding, recurrent infection, the need for additional procedures, failure to diagnose a condition, and creating a complication requiring transfusion or operation were discussed with the patient. The patient concurred with the proposed plan, giving informed consent. The site of surgery properly noted/marked. The patient was taken to the hybrid operating room, identified as Mehran Couch and the procedure verified as Transcatheter Aortic Valve Replacement. A Time Out was held and the above information confirmed. Standard monitoring lines and Davies catheter were placed. General anesthesia was induced. The patient was prepped and draped in a sterile fashion. Initially, left femoral arterial and venous access was acquired using a Seldinger percutaneous technique. The details of this procedure were dictated under separate note by cardiology. Once a pigtail was positioned in the aortic annulus and a temporary transvenous pacemaker wire was placed in the right ventricular apex and tested, the right femoral artery was accessed using a needle followed by a guidewire under fluoroscopic guidance. Perclose devices were deployed for later arterial closure. Serial dilators were used to dilate the right femoral artery to 16 [place] caliber. The patient was heparinized. The Holm sheath was then inserted into the artery up to the distal abdominal aorta. Arch aortography was performed to define the implant view. A balloon aortic valvuloplasty was then performed using a 25 x 4 balloon with the patient being paced at 180 beats per minute. A 29 Holm Faith 3 transcatheter aortic valve was then positioned in the annulus and deployed with the patient being paced at 180 beats per minute. Following deployment, the valve apparatus was withdrawn and arch aortography and BETSY were performed to assess the valve. The valve had no significant perivalvular leaks. Gradients were then measured and the sheath was removed and Perclose sutures secured. An additional angioseal was deployed to achieve hemostasis. Sterile dressings were placed. At the end of the operation, all sponge, instruments, and needle counts were correct. The patient was transferred to the CVICU in stable condition. Findings: No PVL post deployment. Patient has chronic AFIB with a VR of ~40-50. Implants: 29 S3 tissue valve Complications: none Disposition: to CVICU in stable condition Teresa Weber MD Sep 20, 2017 13:10
[2017-09-20] MEDS ORDERED: MIDAZOLAM HCL 2 MG/2 ML VIAL ONE (13:41)
--- NOTE | 2017-09-20 13:44 | EKG ---
Date Performed: 09/20/2017 Time Performed: 09:04:22 PTAGE: 81 years EKG: Atrial fibrillation PREVIOUS TRACING : 08/22/2017 05.55 DOCTOR: Kentrell Oh Interpretating Date/Time 09/20/2017 13:43:28
[2017-09-20] MEDS: SODIUM CHLOR 0.9% 1000 ML 1,000 ML IV SCH ×2 (13:59→17:00)
[2017-09-20] MEDS ORDERED: SODIUM CHLOR 0.9% 1000 ML INJ 1,000 ML IV SCH (14:19)
[2017-09-20] MEDS ORDERED: GLUCAGON 1 MG/ML VIAL OTHER PRN (14:30)
[2017-09-20] MEDS ORDERED: ACETAMINOPHEN 325 MG TAB PO PRN (14:30)
[2017-09-20] MEDS ORDERED: ONDANSETRON HCL 4 MG/2 ML VIAL IV PUSH PRN (14:30)
[2017-09-20] MEDS ORDERED: DEXTROSE 50% IN WATER 50 ML VIAL(D50) IV PUSH PRN (14:30)
[2017-09-20] MEDS ORDERED: MISC INFORMATION OTHER ONE (14:30)
[2017-09-20] MEDS ORDERED: BENZOCAINE-MENTHOL (SUGAR FREE) 15 MG-3.6 MG LOZENGE BUCCAL PRN (14:30)
--- NOTE | 2017-09-20 15:36 | MA ---
cc: Kentrell Oh MD, Wagid F MD 09/20/2017 INDICATION: Severe aortic stenosis. CARDIAC EXERCISE PHYSIOLOGIST/STEEL FITTER: Dr. Av Oh. PRIMARY CARDIOTHORACIC SURGEON: Dr. Teresa Weber. PRIMARY CARE PHYSICIAN: Dr. Oconnor. PROCEDURE PERFORMED: 1. Fluoroscopy with interpretation. 2. Ascending aortography. 3. Aortic balloon valvuloplasty. 4. Temporary transvenous pacemaker placement. 5. Transcatheter aortic valve replacement. METHOD: Risks, benefits and alternatives were discussed with the patient. The patient understood and consented to the procedure. The patient was brought to the catheterization lab. Bilateral groins were prepped and draped in a sterile fashion. The left groin was anesthetized with 2% lidocaine. The left femoral vein and artery were accessed. A 5-Samoan 11 centimeter sheath was placed in both. Right femoral common femoral artery was accessed with a micropuncture sheath and digital subtraction angiography did confirm intraluminal placement. An 8-Samoan sheath followed by a 12-Samoan dilator followed by a 16-Samoan Holm delivery sheath was advanced up under fluoroscopy guidance to the level of the descending aorta. Two Perclose devices were deployed in a preclose fashion. ASCENDING AORTOGRAPHY: Ascending aortography was performed in left anterior oblique view and a 20 mL contrast injection was performed on several injections to line up the left, right and non coronary cusp in a parallax plane. No significant aortic dilatation. AORTIC BALLOON VALVULOPLASTY: A 6-Samoan AL-1 guide catheter was advanced to the ascending aorta. A straight-tipped Amplatz Super Stiff wire was then advanced across the aortic valve with some difficulty. AL-1 catheter was advanced into the left ventricle and a standard J-wire was advanced off of the apex to the left ventricle. AL-1 catheter was removed. A 6-Samoan pigtail catheter was advanced to the apex and a EQALtronic Confida wire was advanced out to the apex and a 6-Samoan pigtail catheter removed. A 25 mm aortic valvuloplasty balloon was advanced to the aortic valve and under fluoroscopic guidance the aortic valve was then predilated with rapid pacing. Repeat transesophageal echocardiogram did reveal moderate aortic insufficiency, but the patient tolerated the procedure well. TRANSCATHETER AORTIC VALVE REPLACEMENT: A 29 mm Holm Faith 3 valve was then advanced in the descending aorta, the balloon pulled back into the valve and navigated around the arch, across the aortic valve. Aortography did confirm appropriate placement and the valve was slowly deployed with good seating. The transesophageal echocardiogram revealed no significant paravalvular leak. The post deployment aortic valve gradient showed a velocity max of 1.76 centimeters per second with a mean gradient of 6 mmHg and a calculated aortic valve area of 1.51 cm2. Heparin was administered throughout the entire procedure to maintain appropriate anticoagulation. CONCLUSIONS: 1. Severe aortic stenosis. 2. Successful transcatheter aortic valve replacement with a 29 mm Holm Faith 3 bioprosthetic aortic valve. 3. Successful aortic valvuloplasty. 4. Successful utilization of temporary transvenous pacemaker. 5. No significant ascending aortic dilation. PLAN: The patient tolerated the procedure well hemodynamically. Electrically the patient was somewhat pacer dependent at the completion of the case. The patient has history of atrial fibrillation but this looked like he had escaped ventricular complexes. Will follow his heart rhythm closely. Dr. Ohara, Electrophysiology is going to participate in consultation. He may require pacemaker. Will monitor him closely for any postprocedural complications. The right groin was closed with 2 Percloses successfully with good hemostasis. The left groin sheaths were closed both with 5-Samoan Mynx device. MD MARZENA Hansen/TL/rh , 02:19 PM , 03:16 PM
[2017-09-20] MEDS: INSULIN NovoLIN REGULAR SUPPLEMENTAL SCALE SQ SCH ×2 (17:00→21:00)
--- NOTE | 2017-09-20 20:15 | PD.CONS ---
[facility] Service Critical Care Medicine Consult Requested By Dr. Oh Reason for Consult Perioperative management of medical comorbidities Primary Care Physician Aida Oconnor MD History of Present Illness This is an 81-year-old male with history of severe symptomatically aortic stenosis who presents for elective transcatheter aortic valve replacement. He underwent uncompleted procedure via iliac access. He was x-rayed at the conclusion of the case and taken to the CVICU for close monitoring. I evaluated the patient in the CVICU where he was still somewhat somnolent arousing from anesthesia. A complete review of systems and history is not obtainable due to his somnolence and arousing from anesthesia. However, he does deny chest pain, shortness of breath, nausea, vomiting, headache. Review of Systems ROS Limitations: Clinical Condition, Altered Mental Status Respiratory: DENIES: Shortness of breath Cardiovascular: DENIES: Chest pain Gastrointestinal: DENIES: Nausea, Vomiting Neurologic: DENIES: Headache ROS arousing from anesthesia Past Family Social History Allergies: Coded Allergies: chocolate flavor (Unverified Allergy, Mild, Sneezing, 08/21/17) tree nut (Unverified Allergy, Mild, Sneezing, 08/21/17) ALL NUTS PER PT. Past Medical History Atrial fibrillation Severe aortic stenosis Hypertension Hyperlipidemia Chronic kidney disease, unknown stage Diet-controlled diabetes mellitus degenerative joint disease Cervical spine stenosis with spondylosis Neuropathy Osteoarthritis Pulmonary hypertension TIA Past Surgical History Left cataract surgery Colonoscopy Cervical spine epidural injection and nerve blocks Prostatectomy Reported Medications Plavix (Clopidogrel Bisulfate) 75 Mg Tab 75 Mg PO DAILY 30 Days Verapamil ER (Verapamil HCl) 120 Mg Tab 120 Mg PO DAILY Zyrtec (Cetirizine HCl) 10 Mg Tablet 10 Mg PO DAILY Tramadol (Tramadol HCl) 50 Mg Tab 50 Mg PO Q8H PRN Systane Opth Drops (Polyethylene Glycol-Propylene Glycol Opth Drp) 0.4-0.3% Soln 1-2 Drop EACH EYE PRN PRN Gabapentin 100 Mg Cap 100 Mg PO HS Furosemide 40 Mg Tab 40 Mg PO DAILY Lovastatin 40 Mg Tab 40 Mg PO DAILY Coumadin (Warfarin) 5 Mg Tab 5 Mg PO DAILY PRN Coumadin (Warfarin) 3 Mg Tab 3 Mg PO DAILY Active Ordered Medications See MAR Family History Reviewed and found to be noncontributory to his acute illness Social History Former smoker, denies EtOH, denies other drugs. Physical Exam Vital Signs Vital Signs Date Time Temp Pulse Resp B/P (MAP) Pulse Ox O2 Delivery O2 Flow Rate FiO2 09/20/17 19:29 98 Nasal Cannula 4.00 09/20/17 17:20 99 Nasal Cannula 4.00 09/20/17 15:00 59 09/20/17 15:00 97.6 59 16 122/62 (82) 99 09/20/17 15:00 59 09/20/17 13:45 59 09/20/17 13:25 98.7 112 16 82/41 (55) 93 09/20/17 13:25 112 09/20/17 13:25 112 09/20/17 12:30 97 Nasal Cannula 4.00 09/20/17 08:42 97.9 69 18 148/87 (107) 96 Physical Exam GENERAL: Elderly male, lying in bed, arousing from anesthesia HEENT: Normocephalic. Atraumatic. Pupils equal, round, reactive, conjugate. Mucous membranes are moist NECK: Trachea is midline. There is no JVD. Left IJ introducer sheath with transvenous pacer in place, site is clean dry and intact CHEST: Nasal cannula oxygen, equal chest rise. Unlabored. CARDIOVASCULAR: Normal rate of 60, regular rhythm. Appears junctional by telemetry. Intermittently paced. Transvenous pacer is set VVI at a backup rate of 60. ABDOMEN: Soft, nontender, nondistended. No guarding. MUSCULOSKELETAL: Pulses 2+. No peripheral edema. Bilateral groin sites covered in clean dressings, no evidence of hematoma. Distal pulses dopplerable. NEUROLOGICAL: RASS -1. Arousing from anesthesia. No focal deficits. Moves all extremities. Follows commands. Laboratory Laboratory Tests Test 09/20/17 08:35 Prothrombin Time 13.0 Prothromb Time International Ratio 1.3 Activated Partial Thromboplast Time 34.1 Assessment and Plan Assessment and Plan Assessment: 81yM with severe aortic stenosis now POD 0 s/p elective transcatheter aortic valve replacement. will admit to ICU and monitor closely. s/p TAVR with iliac access 09/20 - frequent neurovascular checks - mivf - close uop monitoring - anticoagulation per Dr. Oh Junctional Bradycardia - electrophysiology consult - continue transvenous pacer VVI @ 60 - hold home verapamil Atrial Fibrillation - currently rate controlled - full anticoagulation plan per Dr. Oh Chronic Kidney Disease, unknown stage - patient did receive iv contrast for procedure. continue mivf and trend Cr on daily BMP. close uop monitoring. Diabetes Mellitus - heart healthy diet - check glucose on daily BMP Hypertension - liberal blood pressure goals POD 0, goal sbp < 180 - add back home antihypertensives as needed Hyperlipidemia - restart home statin Neuropathy - restart home gabapentin Allergic Rhinitis - restart home zyrtec advance diet as tolerated SCDs Critical care medicine will follow along with you as long as patient remains in the CVICU. Code Status Full Code Discussed Condition With Dr. Oh, Gabo Piper MD Sep 20, 2017 20:15
--- NOTE | 2017-09-20 20:19 | PD.PROCEDR ---
Procedure Note Procedure Procedure: Transesophageal Echocardiography Diagnosis: Severe aortic stenosis Indications: Preoperative planning for transcatheter aortic valve replacement Consent: Obtained Anesthesia: General endotracheal anesthesia Description of the Procedure: The patient was sedated and mechanically ventilated. The echo probe was inserted easily and without resistance. At the conclusion of the procedure, the echo probe was removed. Please see detailed echocardiogram report for formal findings. Preliminary Findings (not confirmed): pre-procedure: 1) grossly preserved LV and RV function 2) severe aortic stenosis 3) mild mitral regurgitation 4) no evidence of intra-atrial shunting by color flow Doppler 5) evidence of left atrial hypertension by pulmonary vein flow. 6) spontaneous echo contrast in left and right atria suggestive of low-flow state 7) trivial pericardial effusion which was present prior to the procedure. Post-procedure: 1) s/p successful placement of transcatheter bioprosthetic aortic valve 2) no perivalvular leak 3) no evidence of bioprosthetic valve stenosis based on visual inspection and color flow Doppler. However, the study was inadequate to make objective conclusions regarding trans-valvular gradients. 4) stable trivial pericardial effusion The patient tolerated the procedure well with no hemodynamic instability. There were no immediate complications noted. There was minimal EBL. I personally performed the procedure. Gabo Lemos MD Sep 20, 2017 20:19
[2017-09-21] MEDS: SODIUM CHLOR 0.9% 1000 ML 1,000 ML IV SCH (01:00)
[2017-09-21 03:00] VITALS: BP 130/50; PULSE 59; RESP 20; TEMP 98.7; O2SAT 93
[2017-09-21 05:11] LABS: HEMATOCRIT 33.6 % (39.0-51.0); HEMOGLOBIN 11.4 GM/DL (13.0-17.0); MEAN CELL VOLUME 95.3 FL (80.0-100.0); MEAN CORPUSCULAR HEMOGLOBIN 32.2 PG (27.0-34.0); MEAN CORPUSCULAR HGB CONC 33.8 % (32.0-36.0); MEAN PLATELET VOLUME 9.5 FL (7.0-11.0); PLATELET COUNT 132 TH/MM3 (150-450); RED BLOOD COUNT 3.53 MIL/MM3 (4.50-5.90); RED CELL DISTRIBUTION WIDTH 13.1 % (11.6-17.2); WHITE BLOOD COUNT 7.5 TH/MM3 (4.0-11.0)
[2017-09-21 05:39] LABS: BICARBONATE 25.2 MEQ/L (21.0-32.0); CALCIUM 8.2 MG/DL (8.5-10.1); CREATININE 0.86 MG/DL (0.60-1.30)
[2017-09-21 07:00] VITALS: BP_SYST 126; BP_SYST 142; BP_DIAS 35; BP_DIAS 54; PULSE 59; RESP 16; TEMP 98.6; O2SAT 95
[2017-09-21] MEDS: INSULIN NovoLIN REGULAR SUPPLEMENTAL SCALE SQ SCH ×4 (08:00→20:58)
--- NOTE | 2017-09-21 08:19 | PD.CARD.PN ---
Subjective Subjective Remarks doing well. no complaints paced rhythm at 60 bpm. no arrhythmias Objective Medications Current Medications Medications (Trade) Dose Ordered Sig/Lalo Route Start Time Stop Time Status Last Admin Sodium Chloride 1,000 ml @ 125 mls/hr Q8H IV 09/20/17 09:00 09/20/17 13:59 Cefazolin Sodium/ Dextrose 50 ml @ 100 mls/hr WE[employer]ER PRN IV 09/20/17 09:00 09/23/17 08:59 09/20/17 12:00 (Betadine 5% Antisepsis Kit) 1 applic WE[employer]INEER PRN EACH NARE 09/20/17 09:00 09/23/17 08:59 09/20/17 09:15 (Bactroban Nasal 2% Oint) 1 applic WEIGHT CONTROL ENGINEER PRN EACH NARE 09/20/17 09:00 09/23/17 08:59 (Chlorhexidine 2% Cloth) 3 pack WEIGHT [employer]INEER PRN TOPICAL 09/20/17 09:00 09/23/17 08:59 09/20/17 09:15 (Tylenol) 650 mg Q4H PRN PO 09/20/17 14:30 09/21/17 14:29 (Cepacol Extra Sumanth (Sugar Free)) 1 lozenge Q3H PRN BUCCAL 09/20/17 14:30 09/21/17 14:29 (Zofran Inj) 4 mg UNSCH X1 PRN IV PUSH 09/20/17 14:30 09/21/17 14:29 (Aspirin Chew) 81 mg DAILY PO 09/21/17 09:00 (D50w (Vial) Inj) 50 ml UNSCH PRN IV PUSH 09/20/17 14:30 (Glucagon Inj) 1 mg UNSCH PRN OTHER 09/20/17 14:30 (NovoLIN R SUPPLEMENTAL SCALE) 1 ACHS SLIDING SCALE SQ 09/20/17 17:00 (Plavix) 75 mg DAILY PO 09/21/17 09:00 (Lasix) 40 mg DAILY PO 09/21/17 09:00 (Pravachol) 40 mg DAILY PO 09/21/17 09:00 Vital Signs / I&O Vital Signs Date Time Temp Pulse Resp B/P (MAP) Pulse Ox O2 Delivery O2 Flow Rate FiO2 09/21/17 03:00 59 09/21/17 03:00 98.7 59 20 130/50 (76) 93 09/21/17 03:00 59 09/20/17 23:00 59 09/20/17 23:00 59 09/20/17 23:00 98.5 59 20 149/55 (86) 95 09/20/17 19:29 98 Nasal Cannula 4.00 09/20/17 19:00 98.3 59 20 142/52 (82) 97 09/20/17 19:00 59 09/20/17 19:00 59 09/20/17 17:20 99 Nasal Cannula 4.00 09/20/17 15:00 59 09/20/17 15:00 97.6 59 16 122/62 (82) 99 09/20/17 15:00 59 09/20/17 13:45 59 09/20/17 13:25 98.7 112 16 82/41 (55) 93 09/20/17 13:25 112 09/20/17 13:25 112 09/20/17 12:30 97 Nasal Cannula 4.00 09/20/17 08:42 97.9 69 18 148/87 (107) 96 I/O 09/20/17 09/20/17 09/20/17 09/21/17 09/21/17 09/21/17 07:00 15:00 23:00 07:00 15:00 23:00 Intake Total 1500 ml 620 ml 480 ml Output Total 350 ml 225 ml 800 ml Balance 1150 ml 395 ml -320 ml Intake Oral 120 ml 480 ml IV Total 500 ml Other 1500 ml Output Urine Total 150 ml 225 ml 800 ml Stool Total 0 ml Estimated Blood Loss 200 ml Physical Exam G NECK: Supple, trachea midline. No JVD or lymphadenopathy. CARDIOVASCULAR: Regular rate and rhythm paced. 6 SM RESPIRATORY: Breath sounds equal bilaterally. No accessory muscle use. GASTROINTESTINAL: Abdomen soft, non-tender, nondistended. MUSCULOSKELETAL: No cyanosis, or edema. BACK: Nontender without obvious deformity. No CVA tenderness. Laboratory Laboratory Tests Test 09/20/17 08:35 09/21/17 04:23 Prothrombin Time 13.0 SEC Prothromb Time International Ratio 1.3 RATIO Activated Partial Thromboplast Time 34.1 SEC White Blood Count 7.5 TH/MM3 Red Blood Count 3.53 MIL/MM3 Hemoglobin 11.4 GM/DL Hematocrit 33.6 % Mean Corpuscular Volume 95.3 FL Mean Corpuscular Hemoglobin 32.2 PG Mean Corpuscular Hemoglobin Concent 33.8 % Red Cell Distribution Width 13.1 % Platelet Count 132 TH/MM3 Mean Platelet Volume 9.5 FL Blood Urea Nitrogen 13 MG/DL Creatinine 0.86 MG/DL Random Glucose 124 MG/DL Calcium Level 8.2 MG/DL Sodium Level 141 MEQ/L Potassium Level 3.9 MEQ/L Chloride Level 108 MEQ/L Carbon Dioxide Level 25.2 MEQ/L Anion Gap 8 MEQ/L Estimat Glomerular Filtration Rate 85 ML/MIN Assessment and Plan Assessment and Plan Severe aortic valve stenosis - s/p TAVR asa plavix chronic CHF - ACEi afib - on anticoagulation as outpatient. Pacemaker dependent HR 60 bpm. Appreciate EP assistance. Plan for PPM today. anticipate DC tomorrow. continue current med mgt Kentrell Oh MD Sep 21, 2017 08:19
[2017-09-21] MEDS ORDERED: FUROSEMIDE 40 MG TAB PO SCH (09:00)
[2017-09-21] MEDS ORDERED: CLOPIDOGREL 75 MG TAB PO SCH (09:00)
[2017-09-21] MEDS: PRAVASTATIN SOD 40 MG TAB PO SCH (09:29)
[2017-09-21] MEDS: FUROSEMIDE 20 MG TAB PO SCH (09:29)
[2017-09-21] MEDS: CLOPIDOGREL 75 MG TAB PO SCH (09:29)
[2017-09-21] MEDS: ASPIRIN 81 MG CHEW TAB PO SCH (09:29)
--- NOTE | 2017-09-21 09:34 | RADRPT ---
EXAM DATE/TIME: 09/21/2017 08:58 [facility] COMPARISON: CHEST SINGLE AP, August 21, 2017, 6:21. INDICATIONS : Status post transcatheter aortic valve replacement. MEDICAL HISTORY : Hypertension. SURGICAL HISTORY : Coronary artery stent. ENCOUNTER: Subsequent ACUITY: 1 day PAIN SCORE: 0/10 LOCATION: chest FINDINGS: A single view of the chest demonstrates the lungs to be symmetrically aerated without evidence of mas s, infiltrate or effusion. The heart size is enlarged but stable. There is a heart valve in place. T here is a left-sided central line in place. There is no pneumothorax.. CONCLUSION: No acute disease. No significant change has occurred. Prem Dominguez MD on September 21, 2017 at 9:32 Board Certified Radiologist. This report was verified electronically.
[2017-09-21 11:00] VITALS: BP 139/62; PULSE 59; RESP 16; TEMP 98.8; O2SAT 97
--- NOTE | 2017-09-21 11:45 | ECHRPT ---
Indication: EF CHF CONCLUSIONS Normal left ventricular size. Wall thickness is normal. The left ventricular systolic function is normal with an estimated ejection fraction in the range of 60-65%. Mild mitral annular calcification. The aortic valve prosthesis is normal to two-dimensional, color flow and Doppler interrogation. Aortic valve mean gradient is 6.3 mmHg. There is mild to moderate tricuspid valve regurgitation. There is estimated mild pulmonary hypertension present ( 45 mmHg). BP: / HR: Rhythm: MEASUREMENTS (Male / Female) Normal Values Technical Quality:Good 2D ECHO LV Diastolic Diameter PLAX 4.2 cm 4.2 - 5.9 / 3.9 - 5.3 cm LV Systolic Diameter PLAX 3.1 cm IVS Diastolic Thickness 1.1 cm 0.6 - 1.0 / 0.6 - 0.9 cm LVPW Diastolic Thickness 1.0 cm 0.6 - 1.0 / 0.6 - 0.9 cm LV Relative Wall Thickness 0.5 DOPPLER AV Peak Velocity 176.7 cm/s AV Peak Gradient 12.5 mmHg AV Mean Gradient 6.3 mmHg AV Velocity Time Integral 37.4 cm LVOT Peak Velocity 75.2 cm/s LVOT Peak Gradient 2.3 mmHg LVOT Velocity Time Integral 15.5 cm TR Peak Velocity 316.0 cm/s TR Peak Gradient 39.9 mmHg Right Atrial Pressure 5.0 mmHg Pulmonary Artery Systolic Pressu 44.9 mmHg Right Ventricular Systolic Press 44.9 mmHg FINDINGS LEFT VENTRICLE Normal left ventricular size. Wall thickness is normal. The left ventricular systolic function is normal with an estimated ejection fraction in the range of 60-65%. RIGHT VENTRICLE The right ventricle is mild to moderately dilated. LEFT ATRIUM The left atrial size is normal. RIGHT ATRIUM The right atrial size is normal. ATRIAL SEPTUM Normal atrial septal thickness without atrial level shunting by limited color doppler interrogation. AORTA The aortic root and proximal ascending aorta are normal in size on limited imaging. MITRAL VALVE Mitral annular calcification is present. Mild mitral annular calcification. AORTIC VALVE The aortic valve prosthesis is normal to two-dimensional, color flow and Doppler interrogation. Aortic valve mean gradient is 6.3 mmHg. TRICUSPID VALVE There is mild to moderate tricuspid valve regurgitation. There is estimated mild pulmonary hypertension present ( 45 mmHg). PULMONARY VALVE No pulmonary valve regurgitation or stenosis. VESSELS The inferior vena cava is normal in size. PERICARDIUM No pericardial effusion. Kentrell Oh MD, FACC (Electronically Signed) Final Date:21 September 2017 11:44
--- NOTE | 2017-09-21 12:34 | MB ---
cc: Jeovany Ohara MD DATE OF CONSULT: 09/20/2017 REASON FOR CONSULTATION: Status post TAVR, AV block. HISTORY OF PRESENT ILLNESS: Mr. Couch is an 81-year-old gentleman with a history of severe aortic stenosis, high blood pressure, hyperlipidemia, renal insufficiency, atrial fibrillation, previous TIA, pulmonary hypertension, will undergo a transcatheter aortic valve replacement. During hospitalization complete AV block. The patient currently is V-pacing. I was consulted for evaluation and management. The chart was reviewed. The patient was evaluated. ALLERGIES: CHOCOLATE AND NUTS. SOCIAL HISTORY: Negative for smoking and drinking. FAMILY HISTORY: Noncontributory to his current medical condition. MEDICATIONS: He is on aspirin. He is on Plavix. He is on Lasix. He is on Pravachol. He is on Zofran. REVIEW OF SYSTEMS: He refers no chest pain, no chest discomfort. Some shortness of breath, but no fever. PHYSICAL EXAMINATION: GENERAL: Alert, fully oriented, sitting at bedside, eating. VITAL SIGNS: Blood pressure was 122/62, pulse 60 by the pacemaker, respiratory rate 18. LUNGS: Ventilated. CARDIOVASCULAR: S1, S2 regular. ABDOMEN: Obese, no mass. LOWER EXTREMITIES: No edema. ECHOCARDIOGRAM: V-pacing. LABORATORY DATA: INR 1.3. 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 He has a temporary pacemaker. Even the conduction resumes, the patient is going to be at high risk of severe bradycardia and AV node arrest. He will need a pacemaker. The risks, the nature and the benefit of the procedure were clearly stated to him. The risks include pneumothorax, cardiac perforation, stroke or even . He understood and agreed to proceed. I will attempt to implant a Micra single-chamber pacemaker for him in the morning. The patient will be kept n.p.o. after midnight. MD ANN MARIE Daly/INDRA , 11:13 PM , 12:26 AM
--- NOTE | 2017-09-21 14:38 | PD.CAR.PN ---
CVT Progress Note Subjective/Hospital Course: Mr. Couch is an 81-year-old gentleman with a history of severe aortic stenosis, high blood pressure, hyperlipidemia, renal insufficiency, atrial fibrillation, previous TIA, pulmonary hypertension, 09/20 surgery: Transcatheter aortic valve replacement with a 29 Faith 3 tissue valve Balloon aortic valvuloplasty with a 25 Holm balloon Percutaneous bilateral femoral artery access with Perclose closure on the right Left femoral venous access Aortography 09/21 post op he developed complete AV block. The patient currently is V-pacing. for PPM today by Dr Ohara echo: Mild mitral annular calcification. The aortic valve prosthesis is normal to two-dimensional, color flow and Doppler interrogation. Aortic valve mean gradient is 6.3 mmHg. There is mild to moderate tricuspid valve regurgitation. There is estimated mild pulmonary hypertension present ( 45 mmHg). Objective: GENERAL: A&O x 3 SKIN: Warm and dry. dressing intact right neck and both groins HEAD: Normocephalic. EYES: No scleral icterus. No injection or drainage. NECK: Supple, trachea midline. No JVD or lymphadenopathy. CARDIOVASCULAR: 100% vpaced no gallops, or rubs. RESPIRATORY: Breath sounds equal bilaterally. No accessory muscle use. GASTROINTESTINAL: Abdomen soft, non-tender, nondistended. MUSCULOSKELETAL: No cyanosis, or edema. BACK: Nontender without obvious deformity. No CVA tenderness. Vital Signs Date Time Temp Pulse Resp B/P (MAP) Pulse Ox O2 Delivery O2 Flow Rate FiO2 09/21/17 07:00 59 09/21/17 07:00 59 09/21/17 07:00 98.6 59 16 142/54 (83) 95 126/35 (65) 09/21/17 03:00 59 09/21/17 03:00 98.7 59 20 130/50 (76) 93 09/21/17 03:00 59 09/20/17 23:00 59 09/20/17 23:00 59 09/20/17 23:00 98.5 59 20 149/55 (86) 95 09/20/17 19:29 98 Nasal Cannula 4.00 09/20/17 19:00 98.3 59 20 142/52 (82) 97 09/20/17 19:00 59 09/20/17 19:00 59 09/20/17 17:20 99 Nasal Cannula 4.00 09/20/17 15:00 59 09/20/17 15:00 97.6 59 16 122/62 (82) 99 09/20/17 15:00 59 Labs: Laboratory Tests Test 09/21/17 04:23 White Blood Count 7.5 TH/MM3 (4.0-11.0) Red Blood Count 3.53 MIL/MM3 (4.50-5.90) Hemoglobin 11.4 GM/DL (13.0-17.0) Hematocrit 33.6 % (39.0-51.0) Mean Corpuscular Volume 95.3 FL (80.0-100.0) Mean Corpuscular Hemoglobin 32.2 PG (27.0-34.0) Mean Corpuscular Hemoglobin Concent 33.8 % (32.0-36.0) Red Cell Distribution Width 13.1 % (11.6-17.2) Platelet Count 132 TH/MM3 (150-450) Mean Platelet Volume 9.5 FL (7.0-11.0) Blood Urea Nitrogen 13 MG/DL (7-18) Creatinine 0.86 MG/DL (0.60-1.30) Random Glucose 124 MG/DL (74-106) Calcium Level 8.2 MG/DL (8.5-10.1) Sodium Level 141 MEQ/L (136-145) Potassium Level 3.9 MEQ/L (3.5-5.1) Chloride Level 108 MEQ/L (98-107) Carbon Dioxide Level 25.2 MEQ/L (21.0-32.0) Anion Gap 8 MEQ/L (5-15) Estimat Glomerular Filtration Rate 85 ML/MIN (>89) Result Diagram: 09/21/17 0423 09/21/17 0423 (1) S/P TAVR (transcatheter aortic valve replacement) Plan: ASA, plavix lasix cristianger orders and plan per Dr Oh will see prn (2) Aortic stenosis (3) Diastolic heart failure (4) Complete heart block Plan: for PPM today Hemalatha Sharma Sep 21, 2017 14:38
[2017-09-21 15:00] VITALS: BP 124/50; PULSE 59; RESP 16; TEMP 98.6; O2SAT 94
[2017-09-21] MEDS ORDERED: PROPOFOL 200 MG/20 ML AMP ONE (15:28)
[2017-09-21] MEDS ORDERED: GLYCOPYRROLATE 0.4 MG/2 ML VIAL ONE (15:43)
[2017-09-21] MEDS ORDERED: VANCOMYCIN HCL 1000 MG VIAL ONE (16:07)
[2017-09-21] MEDS ORDERED: SODIUM CHLOR 0.9% 250 ML INJ 250 ML ONE (16:08)
[2017-09-21] MEDS ORDERED: ceFAZolin INJ 1,000 MG VIAL ONE (16:08)
[2017-09-21] MEDS ORDERED: LORazepam 2 MG/ML VIAL IV PUSH PRN (17:00)
[2017-09-21] MEDS ORDERED: ATROPINE SULFATE 1 MG/ML VIAL IV PUSH PRN (17:00)
[2017-09-21] MEDS ORDERED: BACITRACIN OINT 0.9 GM PKT TOP ONE (17:00)
[2017-09-21] MEDS ORDERED: LIDOCAINE HCL 1% 50 ML VIAL INFIL PRN (17:00)
[2017-09-21] MEDS ORDERED: ONDANSETRON HCL 4 MG/2 ML VIAL IV PUSH PRN (17:00)
[2017-09-21] MEDS ORDERED: oxyCODONE/ACETAMINOPHEN 5 MG/325 MG TAB PO PRN ×2 (17:00)
[2017-09-21] MEDS ORDERED: SODIUM CHLOR 0.9% 250 ML INJ 250 ML IV PRN (17:00)
--- NOTE | 2017-09-21 17:20 | CATHPROC ---
Upptalk HIS Report Study Information Study Number Admission Scheduled Start Study Start [id number] Sep 20 2017 8:02AM 09/21/2017 Sep 21 2017 3:28PM Arthur Service Cardiac Pacer/ICD Admit Source Facility Department Other [facility] - Blood Bank Assistant Physician and Clinical Staff Initial Jeovany Mcintyre Carburetor Mechanic Ellen Dos Santos,PACKAGE REINSPECTOR TECH2 Carburetor Mechanic Ladi, Margarita,FURRIER DESIGNER Other Anesthesia, SECURITY SALES MANAGER Recorder Lesvia May,SHAUN Recorder Christine Aranda,SHAUN Scrub Louie Valverde,RT(R) Procedures Performed Procedure Location (Site) Vessel Name Wire insertion Fem Vein (right) Femoral Vein Equipment Time Chronometer Repairer Description Size Mfg Part Number Used/Scraped BIOSWhoAPITER [id number] 15:57 SET, TUBING COOLFLOW * Used INC. *[id number] 15:46 COOK/PACER DILATOR SET (MICRA) FR8-12 Used *[id number] WIRE, GUIDE AMPLATZ STIFF [id number] 15:46 COOK/PACER 3MMJ Used 180CM *[id number] 15:46 MEDLINE INDUSTRIES PACK, CCL CUSTOM * Used *2346525 15:46 MEDLINE PACER TRENT, LIMB * 2530 *[id number] Used [id number] 15:46 NAMIC TUBING, HIGH PRESSURE 20" 20" Used *[id number] 15:46 NYCOMED OMNIPAQUE, 300 MG, 50ML 50ML [id number] Used SUTURE, 0 ETHIBOND [CT1] (CX21D), 8pk [id number] 15:46 SHER MEDICAL BLANKET,WARM AIR CCL * Used *[id number] 15:46 VITATRON MEDTRONIC MONITOR, PACEMAKER\\ICD 93052 *[id number] Used [id number] 16:34 VITATRON MEDTRONIC SHEATH, INTRODUCER (MICRA) Used *[id number] SYSTEM, TRANS-CATHETER [id number] 15:46 VITATRON MEDTRONIC Used PACING (MICRA) *[id number] History: Allergies Allergy Reaction chocolate flavor tree nut History: Risk Factors Family History of Hypertension Dyslipidemia Previous [place] Previous Heart Failure Premature CAD Yes Yes Yes No No Prior Valve Prior PCI Prior CABG Surgery Yes No No Cerebrovascular Peripheral Artery Chronic Lung On Dialysis Diabetes Diabetes Therapy Disease Disease Disease No Yes No No Yes None Labs Hgb (g/dl) Hct (%) RBC (MIL/MM3) WBC (l/cumm) Platelets (thousands) 11.60-17.00 35.00-51.00 4.00-5.90 4.00-11.00 150.00-450.00 11.4 33.6 3.5 7.5 132 Glucose (mg/dl) BUN (mg/dl) Creatinine (mg/dl) BUN:Creatinine (1:x) 74.00-106.00 7.00-18.00 0.50-1.30 10.00-20.00 124 13 0.8 16.3 Na (meq/l) K (meq/l) Cl (meq/l) CO2 (mmol/L) Ca (mg/dl) 136.00-145.00 3.50-5.10 98.00-107.00 21.00-32.00 8.50-10.10 141 3.9 108 25.2 8.2 PT (sec) PTT (sec) INR (PTT:PT) 9.80-11.60 24.30-30.10 0.90-1.10 13 34.1 1.3 CPK-MB (ng/ML) 0.50-3.60 Not Drawn Medication Medication Total Dose (Bolus/Oral) Medication Total Dosage/Unit 2% XYLOCAINE 50 mL HEPARIN 2000 units Medications (Bolus/Oral) Medication Time Given Dosage/Unit Administered By Reason 2% XYLOCAINE 09/21/2017 4:28:37 PM 50 mL Jeovany Ohara 50 mL 2% XYLOCAINE given in lab by Jeovany Ohara in Right Groin via Subcutaneous. HEPARIN 09/21/2017 4:36:13 PM 2000 units Anesthesia, SECURITY SALES MANAGER As per physicians mahi bal order 2000 units HEPARIN given in lab by Anesthesia, SECURITY SALES MANAGER via Peripheral IV. Ordered by Jeovany Ohara. Reas on: As per physicians verbal order. Medication (Drip) Medication Time Given Dosage/Unit Concentration/Unit Diluent (ml) Solution ANCEF 09/21/2017 4:10:49 PM 2 g 2 g ANCEF given in lab by Anesthesia, SECURITY SALES MANAGER via Peripheral IV. Ordered by Jeovany Ohara. Reason: As pe r physicians verbal order. VANCOMYCIN DRIP 09/21/2017 4:10:04 PM 1 g 1 g VANCOMYCIN DRIP given in lab by Anesthesia, SECURITY SALES MANAGER via Peripheral IV. Ordered by Jeovany Ohara. Straughn son: As per physicians verbal order. Initial Case Assessment Final Case Assessment Cardiovascular HR Rhythm NIBP Chest Pain 69 vpk teacher 139/64 0 Edema Present Skin color Skin None Normal Warm Dry Circulatory - Right Pulses Dorsalis Pedis 1 Scale (0,1,2,3,4,d) Circulatory - Left Pulses Dorsalis Pedis 1 Scale (0,1,2,3,4,d) Circulatory - Lower Extremities Color Lower Right Color Lower Left Normal Normal Neurological State Lethargic Moves all extremities Respiration - General Respiration Rate SpO2 (%) O2 (lpm) (B/min) 16 87 6 Chronological Log Time Study Chronological Log 16:05:25 Patient arrived via Bed. 16:05:34 Patient Name, D.O.B, / Armband Verified By R.N. 16:05:41 Pre-op and post- op instructions given; patient acknowledges understanding of instructions. 16:05:44 Verbal Stimulation=2 Physical Stimulation=2 Airway=2 Respiration=2 TOTAL=8. (0=absent, 1=li mited, 2=present) 16:05:59 Anesthesia at bedside. Assumes care of patient. 16:06:50 Patient has been NPO for More than 6Hrs. 16:07:14 Patient Warmer Placed on the Table. 16:07:18 Disposable Defibrillator Pads Placed On Patient. 16:07:20 Maria Esther Prominences Protected 16:07:24 History and physical on the chart or being dictated. 1 g VANCOMYCIN DRIP given in lab by Anesthesia, SECURITY SALES MANAGER via Peripheral IV. Ordered by Bashir Ohara Reason: As per 16:10:04 physicians verbal order. 2 g ANCEF given in lab by Anesthesia, SECURITY SALES MANAGER via Peripheral IV. Ordered by Hanscy. Mayda Reason: As per physicians 16:10:49 verbal order. 16:15:31 Table restraints applied according to hospital policy 16:17:29 Assessment: Initial Case 16:17:46 Right groin prepped with 2% chlorhexidine, and draped after a 3 min. waiting time. 16:19:32 A WIRE, GUIDE AMPLATZ STIFF 180CM 3MMJ was inserted via Fem Vein (right). 16:27:09 Skin Breakdown- 16:27:22 A # 20 IV was noted in the Antecubital (left). Grade = 0 0.9ns kvo 16:27:23 A # 20 IV was noted in the Antecubital (right). Grade = 0 0.9ns kvo Time Out. Correct patient, procedure, procedure equipment, site and side verified with physicia n present. Time 16::33 concurred by MD, individual staff and SECURITY SALES MANAGER. 16:28:35 Case Start 16:28:37 50 mL 2% XYLOCAINE given in lab by Jeovany Ohara in Right Groin via Subcutaneous. 16:29:15 Vascular access was obtained in the Fem Vein (right). 16:31:52 Figure 8 knot placed to right fem vein. 16:32:24 A DILATOR SET (MICRA) FR8-12 was advanced into the Fem Vein (right) using the Modified Seld jasmin technique. 8 16:32:35 A DILATOR SET (MICRA) FR8-12 was advanced into the Fem Vein (right) using the Modified Seld jasmin technique.12 16:32:42 A DILATOR SET (MICRA) FR8-12 was advanced into the Fem Vein (right) using the Modified Seld jasmin technique. 16 16:32:46 A DILATOR SET (MICRA) FR8-12 was advanced into the Fem Vein (right) using the Modified Seld jasmin technique. 20 16:34:15 A SHEATH, INTRODUCER (MICRA) was advanced into the Fem Vein (right) using the Modified Seld jasmin technique. 16:35:06 Dilator and wire removed. Heparin drip attached to introducer. 2000 units HEPARIN given in lab by Anesthesia, SECURITY SALES MANAGER via Peripheral IV. Ordered by Jeovany Ohara . Reason: As per 16:36:13 physicians verbal order. 16:36:38 Micra device prepped and set up. 16:38:52 A SYSTEM, TRANS-CATHETER PACING (MICRA) was advanced via right fem vein and placed in the R V under fluoro. 16:40:00 Micra deployed and placement confirmed under fluoro in 2 views. 16:41:12 The Micra impedance and threshold being tested. 16:46:58 Delivery system and introducer removed from FVR. 16:47:20 [address] Pressure held 20 minutes by DB. Figure 8 knot to be removed in am. 16:49:08 CVICU called. Spoke to Brenna 16:49:21 Bedside Report will be given. 16:49:33 Implant Procedure was performed. 16:49:39 A PPM Implant . (Single) Micra 16:52:14 Implantable Device card placed in patient's chart. 16:54:19 Temporary pacer removed from Left IJ. Sheath pulled by DB 17:00:35 Defibrillator and ground pads removed. Skin intact. Assessment: Final Case, HR=69 BPM, Rhythm=vpk teacher, GKIT=401/64 mmhg, Chest Pain=0, Edema=None, [place] r=Normal, Skin = Warm, Dry Right Pulses: Louie Ped=1 Left Pulses: Louie Ped=1 17:00:43 Lower Right Extremities: Color=Normal Lower Left Extremities: Color=Normal Neurological: State=Lethargic, [place] Respiration: Resp=16 B/min, SpO2=87 %, O2=6 lpm 17:06:10 Sterile dressing applied to site 17:06:33 Case End 17:06:45 No case complications noted. 17:07:00 Cine recording checked. 17:15:28 [facility] End Study - Contrast Media Used In Study Contrast Total Opened (mL) Total Used (mL) Total Wasted (mL) Omnipaque 50 5 45 End Study - Maximum Contrast Load Max Contrast Load (mL) 634.9 End Study - Radiation Exposure Fluoro Time (minutes) 1.4 End Study - Sheaths Sheaths Pulled By Sheath Hold Time (min) Jeovany Ohara End Study - Patient Disposition Complications Transferred To Interventional Outcome No Telemetry Bed successful
[2017-09-21] MEDS ORDERED: IODIXANOL 320 MG/ML 50 ML VIAL (for EPS) OTHER ONE (17:43)
--- NOTE | 2017-09-21 18:24 | EKG ---
Date Performed: 09/21/2017 Time Performed: 05:15:06 PTAGE: 81 years EKG: Ventricular pacing Pacemaker rhythm - no further analysis Abnormal ECG PREVIOUS TRACING : 09/20/2017 09.04 Compared to previous tracing, ventricular pacing is now roya dent. DOCTOR: Joel Nielson Interpretating Date/Time 09/21/2017 18:22:58
[2017-09-21 19:00] VITALS: BP 134/68; PULSE 69; RESP 19; TEMP 98.4; O2SAT 95
[2017-09-21 23:00] VITALS: BP 145/67; PULSE 70; PULSE 72; RESP 18; TEMP 99.7; O2SAT 95
--- NOTE | 2017-09-21 23:44 | EKG ---
Date Performed: 09/21/2017 Time Performed: 18:07:36 PTAGE: 81 years EKG: Accelerated idioventricular rhythm Left axis deviation IV conduction defect Anterolateral i nfarct - age undetermined Low QRS voltages in limb leads Possible Vpaced Abnormal ECG PREVIOUS TRACING : 09/21/2017 05.15 Since the prior tracing, there has been no significant slaughter DOCTOR: Antonio Cisneros Interpretating Date/Time 09/21/2017 23:43:24
[2017-09-22 03:00] VITALS: BP 144/66; PULSE 70; RESP 18; TEMP 99.3; O2SAT 95
[2017-09-22 07:00] VITALS: BP 142/66; PULSE 85; RESP 16; TEMP 98.4; O2SAT 94
[2017-09-22] MEDS: INSULIN NovoLIN REGULAR SUPPLEMENTAL SCALE SQ SCH (08:00)
--- NOTE | 2017-09-22 08:29 | HHI.DS ---
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) ICD Codes: Z95.2 - Presence of prosthetic heart valve CBC/BMP: 09/21/17 0423 09/21/17 0423 Significant Findings Laboratory Tests Test 09/20/17 08:35 09/21/17 04:23 Prothrombin Time 13.0 SEC (9.8-11.6) Activated Partial Thromboplast Time 34.1 SEC (24.3-30.1) Red Blood Count 3.53 MIL/MM3 (4.50-5.90) Hemoglobin 11.4 GM/DL (13.0-17.0) Hematocrit 33.6 % (39.0-51.0) Platelet Count 132 TH/MM3 (150-450) Random Glucose 124 MG/DL (74-106) Calcium Level 8.2 MG/DL (8.5-10.1) Chloride Level 108 MEQ/L (98-107) Estimat Glomerular Filtration Rate 85 ML/MIN (>89) Imaging Last Impressions Chest X-Ray 09/21/17 0000 Signed Impressions: Service Date/Time: September 08:58 - CONCLUSION: No acute disease. No significant change has occurred. Prem Dominguez MD PE at Discharge HEAD: Normocephalic. EYES: No scleral icterus. No injection or drainage. NECK: Supple, trachea midline. No JVD or lymphadenopathy. CARDIOVASCULAR: Regular rate and rhythm 1/6 SM. paced RESPIRATORY: Breath sounds equal bilaterally. No accessory muscle use. GASTROINTESTINAL: Abdomen soft, non-tender, nondistended. MUSCULOSKELETAL: No cyanosis, or edema. BACK: Nontender without obvious deformity. No CVA tenderness. Hospital Course post operative TAVR course unremarkable. no bleeding or respiratory distress + CHB - s/p PPM yesterday with dr. thrasher ambulatory no complaints Pt Condition on Discharge: Good Discharge Disposition: Discharge Home Discharge Instructions DIET: Follow Instructions for: Heart Healthy Diet Activities you can perform: Weight Bearing as Kentrell Mcgraw MD Sep 22, 2017 08:28
[2017-09-22] MEDS: PRAVASTATIN SOD 40 MG TAB PO SCH (08:52)
[2017-09-22] MEDS: CLOPIDOGREL 75 MG TAB PO SCH (08:52)
[2017-09-22] MEDS: FUROSEMIDE 20 MG TAB PO SCH (08:52)
[2017-09-22] MEDS: ASPIRIN 81 MG CHEW TAB PO SCH (08:52)
[2017-09-22] MEDS ORDERED: FURO1TAB62 PO (09:42)
--- NOTE | 2017-09-22 16:07 | MP ---
cc: Jeovany Ohara MD DATE OF OPERATION: 09/21/2017 PROCEDURE PERFORMED: Micra permanent pacemaker insertion and temporary pacemaker removal. INDICATIONS FOR PROCEDURE: Mr. Couch is a 81-year-old gentleman with aortic valve stenosis, status post TAVR complete AV block with a temporary pacemaker, who will undergo Micra permanent pacemaker insertion. The risks, the nature and the benefit of the procedure are clearly stated to him. The risks include cardiac perforation, , stroke and even . The patient understands and agreed to proceed. DESCRIPTION OF PROCEDURE: After written informed consent was obtained, the patient was brought to the EP lab, where he was prepped and draped in the usual sterile fashion. Conscious sedation was initiated and maintained throughout the procedure by anesthesiologist. Once anesthesia verified, the right inguinal area was then instilled with 2% Xylocaine. Using modified Seldinger technique, the right femoral vein was cannulated on one occasion and a stiff Amplatz was advanced all the way to superior vena cava. Then a 1 cm incision was made. Subsequently, the entrance was predilated using an 8, 12, 20-Croatian dilator. Then, the sheath was advanced. Subsequently, the patient received 3000 liters of heparin. The Micra delivery system was advanced and it was placed at the mid left ventricular septum. It was delivered. After adequate pacing and sensing threshold was obtained and good impedance, the device was released. A 2-0 Vicryl suture placed at the exit point to prevent bleeding. At that point, the sheath was removed, as well as the delivery system. No incident to report. The patient tolerated the procedure. The temporary pacemaker in the right area was removed. Blood loss is minimal. 1. Implanted hardware: The implanted device is a StemCyte, model #[id number], serial #[id number] 2. Threshold: The right ventricular pacing threshold in the bipolar mode was 0.25 volts at 0.24 milliseconds. Lead impedance is 100 ohms, R-Wave over 20 millivolts. 3. Setting: The device is VVIR 70 110 beats per minute. CONCLUSION: Ssuccessful Micra insertion. RECOMMENDATIONS: The patient will be observed. Can be discharged home in the morning. MD GRIFFIN Daly , 04:55 PM , 05:30 PM
--- NOTE | 2017-09-23 23:01 | EKG ---
Date Performed: 09/22/2017 Time Performed: 03:05:42 PTAGE: 81 years EKG: Probable Vpaced Abnormal ECG Since the prior tracing, there has been no significant change DOCTOR: Antonio Cisneros Interpretating Date/Time 09/23/2017 22:59:26
== END 2017-09-22 10:20 | disposition home or self-care (01) | DRG 267 ==
LOC: HSDI 08:02 → HDIC 08:06 → HCVI 13:20
PROVIDERS: ADMIT Internal Medicine; ATTEND Internal Medicine
PROC: B3101ZZ Fluoroscopy of Thoracic Aorta using Low Osmolar Contrast (ICD-10-PCS; 2017-09-20)
PROC: B246ZZ4 Ultrasonography of Right and Left Heart, Transesophageal (ICD-10-PCS; 2017-09-20)
PROC: 02RF38Z Replacement of Aortic Valve with Zooplastic Tissue, Percutaneous Approach (ICD-10-PCS; principal; 2017-09-20 11:01)
PROC: 027F3ZZ Dilation of Aortic Valve, Percutaneous Approach (ICD-10-PCS; 2017-09-20 11:01)
PROC: 5A1223Z Performance of Cardiac Pacing, Continuous (ICD-10-PCS; 2017-09-20 11:01)
PROC: 0JH604Z Insertion of Pacemaker, Single Chamber into Chest Subcutaneous Tissue and Fascia, Open Approach (ICD-10-PCS; 2017-09-21)
PROC: 02HK3JZ Insertion of Pacemaker Lead into Right Ventricle, Percutaneous Approach (ICD-10-PCS; 2017-09-21)
DX: I35.0 Nonrheumatic aortic (valve) stenosis (principal); I44.2 Atrioventricular block, complete; I31.3 Pericardial effusion (noninflammatory); R00.1 Bradycardia, unspecified; G62.9 Polyneuropathy, unspecified; E11.22 Type 2 diabetes mellitus with diabetic chronic kidney disease; I50.30 Unspecified diastolic (congestive) heart failure; I13.0 Hypertensive heart and chronic kidney disease with heart failure and stage 1 through stage 4 chronic kidney disease, or unspecified chronic kidney disease; I27.20 Pulmonary hypertension, unspecified; I48.2 Chronic atrial fibrillation; M48.02 Spinal stenosis, cervical region; I34.0 Nonrheumatic mitral (valve) insufficiency; E78.5 Hyperlipidemia, unspecified; I25.10 Atherosclerotic heart disease of native coronary artery without angina pectoris; N18.9 Chronic kidney disease, unspecified; M47.9 Spondylosis, unspecified; Z86.73 Personal history of transient ischemic attack (TIA), and cerebral infarction without residual deficits; Z87.891 Personal history of nicotine dependence; J30.9 Allergic rhinitis, unspecified; Z79.01 Long term (current) use of anticoagulants; Z00.6 Encounter for examination for normal comparison and control in clinical research program
CPT/HCPCS: 0387T; 33210; 33361; 36415; 71045; 80048; 82948; 85002; 85025; 85027; 85610; 85730; 86850; 86900; 86901; 86920; 92986; 93005; 93308; 93312; 93320; 93325; C1760; C1769; C1893; G0269; J0690; J1644; J2250; J2370; J2710; J2720; J3010; J3370; J7030; J7040; J7050; Q9967